=== PATIENT | female | born 1990 | race Caucasian/White ===

== ENCOUNTER 2023-06-06 20:48 | Outpatient (REF) | payer OTHER, SELFPAY ==
[2023-06-13 13:08] LABS: Age Gdln ACOG Testing Note (.); HPV Aptima Negative (Negative); IGP, Aptima HPV, rfx 16/18,45 Note (.)
== END 2023-06-06 20:49 | disposition home or self-care (01) ==
LOC: LAB 20:48
PROVIDERS: PCP Family Medicine; Visit Provider Obstetrics & Gynecology
DX: Z01.419 Encounter for gynecological examination (general) (routine) without abnormal findings (principal)
CPT/HCPCS: 87624; G0145

== ENCOUNTER 2023-10-01 10:20 | Emergency (ER) | payer OTHER, SELFPAY ==
[2023-10-01 10:26] VITALS: BP 135/86; PULSE 116; RESP 18; TEMP 36.9; O2SAT 100; BMI 31.6
--- NOTE | 2023-10-01 10:44 | ECG_ITS ---
[facility] Test Date: 2023-10-01 Pat Name: RAND JOYCE Department: Room: - Gender: Female [employer]: : 1990 Requested By: [id number] Order Number: [id number] Reading MD: KENDALL DOSS Measurements Intervals [place] Rate: 111 P: 59 GA: 180 QRS: 53 QRSD: 82 T: 50 QT: 314 QTc: 380 Interpretive Statements 1120 Sinus tachycardia 9140 abnormal rhythm ECG No previous ECG available for comparison Electronically Signed On 10-01-2023 17:54:57 EST by KENDALL DOSS
--- NOTE | 2023-10-01 10:45 | ED_ITS ---
HPI - General Adult General Chief complaint: Upper Respiratory Infection Stated complaint: CONGESTION/NAUSEA Time Seen by Provider: 10/01/23 10:36 Source: patient Mode of arrival: walk-in History of Present Illness HPI narrative: 33-year-old female presents for dizziness. She states she started feeling ill last night and has pressure in her head. No cough or shortness of breath. No vomiting or abdominal pain or fever. She states she got dizzy walking across the room. She was noted to be tachycardic with a rate of about 115 upon arrival. Related Data Allergies Allergy/AdvReac Type Severity Reaction Status Date / Time amoxicillin AdvReac Intermediate Verified 10/01/23 10:26 Review of Systems ROS Narrative A ten point review of systems is negative except as noted above. PFSH PFSH Social History Smoking status: Never smoker Exam Narrative Exam Narrative: Nurses note and vital signs reviewed and patient is not hypoxic. General: The patient appears well and in no apparent distress. Patient is resting comfortably on cart. Skin: Warm, dry, no pallor noted. There is no rash noted. Head: Normocephalic, atraumatic Eye: Normal conjunctiva, no drainage Ears, Nose, Mouth, and Throat: oral mucosa is moist. Nares patent. no pharyn geal erythema or exudate. She is handling her oral secretions well. Cardiovascular: Regular Rate and Rhythm, tachycardic Respiratory: Patient is in no distress, no accessory muscle use, lungs are clear to auscultation, no wheezing, rales or rhonchi Back: non-tender GI: soft and nontender Musculoskeletal: The patient has no evidence of calf tenderness, no pitting edema, symmetrical pulses noted bilaterally Neurological: A&O, normal speech Psychiatric: Cooperative Constitutional Vital Signs, click to edit/add: Last Vital Signs Temp 98.5 F 10/01/23 10:26 Pulse 116 H 10/01/23 10:26 Resp 18 10/01/23 10:26 BP 135/86 10/01/23 10:26 Pulse Ox 100 10/01/23 10:26 Course Vital Signs Vital signs: Vital Signs Temperature 98.5 F 10/01/23 10:26 Pulse Rate 116 H 10/01/23 10:26 Respiratory Rate 18 10/01/23 10:26 Blood Pressure 135/86 10/01/23 10:26 Pulse Oximetry 100 10/01/23 10:26 Temperature 98.5 F 10/01/23 10:26 Pulse Rate 116 H 10/01/23 10:26 Respiratory Rate 18 10/01/23 10:26 Blood Pressure 135/86 10/01/23 10:26 Pulse Oximetry 100 10/01/23 10:26 Medical Decision Making MDM Narrative Medical decision making narrative: her workup is essentially negative. WBC slightly elevated. She was given IV fluids and feels improved and is able to be discharged home. My clinical impression is that she has a viral illness. Treatment diagnosis and follow-up were discussed with the patient. Differential Diagnosis Differential Diagnosis: viral illness, dehydration, electrolyte imbalance Lab Data Lab results reviewed: Yes I reviewed the patient's lab results Labs: Lab Results 10/01/23 10/01/23 Range/Units 10:30 11:20 WBC 16.5 H (4.0-11.0) 10^3/uL RBC 4.55 (4.20-5.40) 10^6/uL Hgb 13.6 (12.0-16.0) g/dL Hct 41.6 (36.0-48.0) % MCV 91.4 (81.0-99.0) fL MCH 29.9 (26.7-34.0) pg MCHC 32.7 (29.9-35.2) g/dL RDW 12.7 (11.0-15.0) % Plt Count 314 (150-450) 10^3/uL MPV 9.2 L (9.5-13.5) fL Neut % (Auto) 87.5 H (43.0-75.0) % Lymph % (Auto) 6.3 L (20.5-60.0) % [place] % (Auto) 5.8 (1.7-12.0) % Eos % (Auto) 0.0 L (0.9-7.0) % Baso % (Auto) 0.2 (0.2-2.0) % Neut # (Auto) 14.4 H (1.4-6.5) 10^3/uL Lymph # (Auto) 1.0 L (1.2-3.8) 10^3/uL [place] # (Auto) 1.0 H (0.3-0.8) 10^3/uL Eos # (Auto) 0.0 (0.0-0.7) 10^3/uL Baso # (Auto) 0.0 (0.0-0.1) 10^3/uL Abs Immat Gran (auto) 0.04 H (0.00-0.03) 10^3/uL Imm/Tot Granulo (auto) 0.2 (0.0-0.5) % Sodium 139 (136-145) mmol/L Potassium 4.0 (3.5-5.1) mmol/L Chloride 104 (98-107) mmol/L Carbon Dioxide 26.1 (21.0-32.0) mmol/L Anion Gap 12.9 BUN 8.0 (7.0-18.0) mg/dL Creatinine 0.83 (0.55-1.02) mg/dL Est GFR ( Amer) >60 (>=60) Est GFR (Non-Af Amer) >60 (>=60) BUN/Creatinine Ratio 9.6 Glucose 107 H (74-106) mg/dL Calcium 8.3 L (8.5-10.1) mg/dL SARS-CoV-2 (PCR) Negative (NEGATIVE) Streptococcus Screen Negative ECG Data Attestation: I personally reviewed and interpreted this ECG as follows: (EKG on my interpretation shows sinus rhythm with a rate of 111 and no acute changes.) Discharge Plan Discharge Chief Complaint: Upper Respiratory Infection Clinical Impression: Viral infection Patient Disposition: Home, Self-Care Time of Disposition Decision: 12:05 Condition: Good Mode of Transportation: Private Vehicle Instructions: Viral Syndrome (ED) Stand Alone Forms: Portal Instructions Referrals: KIARA MOLINA [Primary Care Provider] - 1 week
[2023-10-01 10:56] LABS: Internal Control Within Normal Limits; SARS-CoV-2 Ag NEGATIVE (NEGATIVE); Strep A Antigen Screen Negative
[2023-10-01] MEDS: 0.9 % SODIUM CHLORIDE 1,000 ML 1000 ML IV (10:59)
[2023-10-01 11:28] LABS: Basophils Percent Auto 0.2 % (0.2-2.0); Hematocrit 41.6 % (36.0-48.0); Hemoglobin 13.6 g/dL (12.0-16.0); Immature Granulocytes Abs Auto 0.04 10^3/uL (0.00-0.03); Immature Granulocytes Pct Auto 0.2 % (0.0-0.5); Lymphocytes Percent Auto 6.3 % (20.5-60.0); Mean Corpuscular HGB Conc 32.7 g/dL (29.9-35.2); Mean Corpuscular Hemoglobin 29.9 pg (26.7-34.0); Mean Corpuscular Volume 91.4 fL (81.0-99.0); Mean Platelet Volume 9.2 fL (9.5-13.5); Monocytes Percent Auto 5.8 % (1.7-12.0); Neutrophils Absolute Auto 14.4 10^3/uL (1.4-6.5); Neutrophils Percent Auto 87.5 % (43.0-75.0); Platelet Count 314 10^3/uL (150-450); Red Blood Count 4.55 10^6/uL (4.20-5.40); Red Cell Distribution Width 12.7 % (11.0-15.0); White Blood Count 16.5 10^3/uL (4.0-11.0)
[2023-10-01 11:58] LABS: Anion Gap 12.9; BUN Creatinine Ratio 9.6; Calcium 8.3 mg/dL (8.5-10.1); Carbon Dioxide 26.1 mmol/L (21.0-32.0); Chloride 104 mmol/L (98-107); Estimated GFR (African America >60 (>=60); Estimated GFR (Non-African Ame >60 (>=60); Glucose 107 mg/dL (74-106); Sodium 139 mmol/L (136-145)
[2023-10-01 14:47] LABS: SARS-CoV-2 NAA NOT DETECTED (NOT DETECTE)
== END 2023-10-01 12:12 | disposition home or self-care (01) ==
PROVIDERS: Emergency Provider Emergency Medicine; PCP Family Medicine
DX: B34.9 Viral infection, unspecified (principal); Z20.822 Contact with and (suspected) exposure to COVID-19
CPT/HCPCS: 36415; 80048; 85025; 87070; 87635; 87811; 87880; 93005; 99284

== ENCOUNTER 2024-09-03 08:29 | Outpatient (OUT) | payer OTHER, SELFPAY ==
--- NOTE | 2024-09-03 08:41 | US_ITS ---
[address] [address] Patient Name: RAND JOYCE MRN: [id number] date: 1990 Sex: F Assigned Patient Location: US Current Patient Location: Accession/Order Number: [id number] Exam Date: 09/03/2024 08:45 Report Date: 09/05/2024 04:38 At the request of: ANGÉLICA LEHMAN Procedure: US pelvis w/ transvaginal EXAMINATION: US pelvis w/ transvaginal HISTORY: Polycystic Ovarian Syndrome E28.2 COMPARISON: No relevant comparison available. TECHNIQUE: Transabdominal and/or transvaginal sonographic examination was performed as indicated by examination type. FINDINGS: UTERUS: Normal size and appearance of the uterine body. Several nabothian cysts within casas of cervix, largest is 1.4 cm.. Uterus size: 8.4 x 5.1 x 4.9 cm ENDOMETRIUM: Normal homogeneous appearance. Endometrial thickness: 6 mm RIGHT OVARY: Normal size and appearance. Duplex Doppler demonstrates normal waveform and flow; resistive index 0.7. Ovary size: 3.3 x 1.9 x 1.5 cm LEFT OVARY: Normal size and appearance. Duplex Doppler demonstrates normal waveform and flow; resistive index 0.6. Ovary size: 2.7 x 1.8 x 1.4 cm CUL-DE-SAC: Unremarkable. No significant free fluid. BLADDER: Unremarkable. OTHER: None. US/US pelvis w/ transvaginal IMPRESSION: 1. No ultrasound evidence of polycystic ovarian syndrome. Electronically authenticated by: LEONARD JENKINS Date: 09/05/2024 04:38
--- OUTSIDE RECORDS SUMMARY | 2024-09-03 08:46 | XMS_ITS | CCD ---
Author Organization [facility] Care Team Providers Care Key Ringer Name Role Phone ASHOK, DR LINDSAY Consulting Unavailable MISC, DR CHAUDHARI Primary Care Unavailable ASHOK, DR LINDSAY Admitting Unavailable ASHOK, DR LINDSAY Attending Unavailable ASHOK, DR LINDSAY Consulting Unavailable ASHOK, DR LINDSAY Admitting Unavailable MISC, DR CHAUDHARI Primary Care Unavailable ASHOK, DR LINDSAY Attending Unavailable TRACY, DR PAM Rosenthal Primary Care Unavailable BROOKLYNN, GUDELIA Attending Unavailable BROOKLYNN, GUDELIA Consulting Unavailable BROOKLYNN, GUDELIA Admitting Unavailable MISC, DR CHAUDHARI Primary Care Unavailable JULIANA, SHELLI Attending Unavailable ANDREWS, SHELLI Admitting Unavailable OMAYRA, MAMTA Attending Unavailable OMAYRA, MAMTA Consulting Unavailable OMAYRA, MAMTA Admitting Unavailable MISC, DR CHAUDHARI Primary Care Unavailable ASHOK, DR LINDSAY Consulting Unavailable MISC, DR CHAUDHARI Primary Care Unavailable ASHOK, DR LINDSAY Admitting Unavailable ASHOK, DR LINDSAY Attending Unavailable ZIEBKELSEY, DR LEONARD Ibarra Consulting Unavailable ALLISON TOTH Referring Unavailable Pam Molina MD Primary Care Provider KAMALA WALSH Attending Unavailable ANGÉLICA PULIDO Attending Unavailable Allergies Allergy Classification Reported Allergen(s) Allergy Type Date of Onset Reaction(s) Facility (3 sources) Amoxicillin Drug Allergy 06-06-2023 Rash [facility] Work Phone: (3 sources) Ciprofloxacin Drug Allergy 06-06-2023 Headache [facility] (3 sources) Escitalopram Drug Allergy 06-30-2023 [facility] (3 sources) venlafaxine Drug Allergy 06-30-2023 [facility] Medications Completed/Discontinued Medications Medication Drug Class(es) Dates Sig (Normalized) Sig (Original) baclofen 10 mg oral tablet (3 sources) gamma-Aminobutyric Acid-ergic Agonist Start: 08-23-2023 End: 08-26-2024 take 1 tablet by mouth in the morning, then take 1 tablet by mouth in the evening, then take 1 tablet by mouth at bedtime baclofen (Lioresal) 10 MG tablet Indications: Muscle tightness Take 1 tablet (10 mg) by mouth in the morning and 1 tablet (10 mg) in the evening and 1 tablet (10 mg) before bedtime. Do all this for 7 days. 21 tablet 08/23/2023 08/26/2024 Discontinued ibuprofen 200 mg oral tablet (3 sources) Nonsteroidal Anti-inflammatory Drug End: 08-26-2024 ibuprofen 200 MG tablet Take by mouth. 08/26/2024 Discontinued MULTIPLE VITAMIN PO (3 sources) End: 08-26-2024 MULTIPLE VITAMIN PO Take by mouth. 08/26/2024 Discontinued MULTIPLE VITAMIN PO Take by mouth. Active Problems Active Problems Problem Classification Problem Date Documented Da te Episodic/Chronic Adjustment disorders (3 sources) Stress; Translations: [Reaction to severe stress, unspecified] Onset: 09-13-2017 06-30-2023 Chronic Administrative/social admission (2 sources) Encounter for pre-employment examination; Translations: [Encounter for pre-employment examination] Onset: 09-15-2023 Episodic Anxiety disorders (3 sources) Anxiety disorder; Translations: [Anxiety disorder, unspecified] Onset: 06-30-2023 06-30-2023 Chronic Menstrual disorders (4 sources) Irregular menstruation, unspecified; Translations: [IRREGULAR MENSTRUATION UNSPECIFIED] Onset: 06-30-2022 Chronic Mood disorders (6 sources) Depressive disorder; Translations: [Depressive disorder] Onset: 11-15-2017 06-30-2023 Chronic Other endocrine disorders (2 sources) Polycystic ovary syndrome; Translations: [Polycystic ovarian syndrome] 08-26-2024 Chronic Other nutritional; endocrine; and metabolic disorders (3 sources) Metabolic syndrome X; Translations: [Insulin resistance syndrome] Onset: 06-30-2023 06-30-2023 Chronic Other nutritional; endocrine; and metabolic disorders (3 sources) Lipoprotein deficiency disorder; Translations: [Lipoprotein deficiency] Onset: 05-27-2019 06-30-2023 Chronic Other nutritional; endocrine; and metabolic disorders (3 sources) Body mass index 30+ - obesity; Translations: [Obesity, unspecified] Onset: 12-07-2018 06-30-2023 Chronic Other upper respiratory infections (3 sources) Chronic sinusitis; Translations: [Chronic sinusitis, unspecified] Onset: 09-08-2020 06-30-2023 Chronic Past or Other Problems Problem Classification Problem Date Documented Date Episodic/Chronic Biliary tract disease (3 sources) Gallstone; Translations: [Calculus of gallbladder without cholecystitis without obstruction] Onset: 09-28-2020 06-30-2023 Episodic Immunizations and screening for infectious disease (1 source) Encounter for screening for human papillomavirus (HPV); Translations: [ENC SCREENING HUMAN PAPILLOMAVIRUS] Onset: 06-01-2022 Episodic Other nutritional; endocrine; and metabolic disorders (3 sources) Abnormal weight gain; Translations: [Abnormal weight gain] Onset: 06-30-2023 06-30-2023 Episodic Other screening for suspected conditions (not mental disorders or infectious disease) (4 sources) Encounter for screening for malignant neoplasm of cervix; Translations: [ENC SCREENING MALIG NEOPLASM CERV] Onset: 05-31-2022 Episodic Other skin disorders (3 sources) Keratosis pilaris; Translations: [Other specified epidermal thickening] Onset: 04-19-2019 06-30-2023 Episodic Residual codes; unclassified (3 sources) Disturbance in sleep behavior; Translations: [Sleep disorder, unspecified] Onset: 06-30-2023 06-30-2023 Episodic Results Test Name Value Interpretation Reference Range Emelina Rojas Ginaevonne 09-21-2023 Send Out Report SEE NOTE Normal [facility] Comment on above: Result Comment: (NOT E) Test name Result Flag Units RefIntvl Varicella-Zoster Virus Ab, IgG 1789.0 IV INTERPRETIVE INFORMATION: VZV Ab, IgG 134.9 IV or less ....... Negative - No significant level of detectable IgG varicella-zoster antibody. 135.0 - 164.9 IV ....... Equivocal - Repeat testing in 10-14 days may be helpful. 165.0 IV or greater .... Positive - IgG antibody to varicella-zoster detected, which may indicate a current or past varicella-zoster infection. The best evidence for current infection is a significant change on two appropriately timed specimens, where both tests are done in the same laboratory at the same time. Performed By: [facility] [address] [place] [id number] Cosmetic Manager: Andrew Garza MD, PhD CLIA Number: [id number] Performed By: #### M ISCF #### [address] [id number] Criminal Records Technician: Gunner Andrews MD [address] [id number] Criminal Records Technician: Shaun Chavez MD [facility] Test Name VZ IGG [facility] [id number] Normal [facility] Comment on above: Performed By: #### M ISCF #### [address] [id number] Criminal Records Technician: Gunner Andrews MD [address] [id number] Criminal Records Technician: Shaun Chavez MD GLUCOSE BLOODon 10-06-2022 Glucose [Mass/Vol] 81 mg/dL Normal 74-106 [facility] [place] [facility] Comment on above: Performed By: #### L IPID, GLUC #### [facility] [address] [place] [id number] Dr. Shantell Nuñez LIPID PROFILEon 10-06-2022 CHOL-HDL RATIO NORM SEE BELOW Normal [facility] Comment on above: Result Comment: 3.3 - 4.4 LOW RISK 4.4 - 7.1 AVERAGE RISK 7.1 - 11.0 MODERATE RISK >11.0 HIGH RISK Performed By: #### L IPID, GLUC #### [facility] [address] [place] [id number] Dr. Shantell Nuñez Cholesterol [Mass/Vol] 163 mg/dL Normal <=200 [facility] Comment on above: Performed By: #### L IPID, GLUC #### [facility] [address] [place] [id number] Dr. Shantell Nuñez Cholesterol in HDL [Mass/Vol] 43 mg/dL Normal 40-60 [facility] Comment on above: Performed By: #### L IPID, GLUC #### [facility] [address] [address] [address] Shantell Nuñez Cholesterol in LDL [Mass/Vol] 107.4 mg/dL Normal [facility] Comment on above: Performed By: #### L IPID, GLUC #### [facility] [address] [address] [address] Shantell Nuñez Cholesterol.total/ Cholesterol in HDL [Mass ratio] 3.8 {ratio} Normal [facility] Comment on above: Performed By: #### L IPID, GLUC #### [facility] [address] [address] [address] Shantell Nuñez HDL NORMAL > or = 60 mg/dl - LO W CARDIOVASCULAR RISK <40 mg/dl - HIGH CARDIOVASCULAR RISK Normal [facility] Comment on above: Performed By: #### L IPID, GLUC #### [facility] [address] [place] [id number] Dr. Shantell Nuñez LDL CALC NORMAL SEE BELOW Normal [facility] Comment on above: Result Comment: <100 mg/dl OPTIMAL 100 - 129 mg/dl NEAR OR ABOVE OPTIMAL 130 - 159 mg/dl BORDERLINE HIGH 160 - 189 mg/dl HIGH >190 mg/dl VERY HIGH Performed By: #### L IPID, GLUC #### [facility] [address] [address] [address] Shantell Nuñez Triglyceride [Mass/Vol] 63 mg/dL Normal <=150 [facility] Comment on above: Performed By: #### L IPID, GLUC #### [facility] [address] [address] [address] Shantell Nuñez VLDL CALC 12.6 mg/dL Normal [facility] Comment on above: Performed By: #### L IPID, GLUC #### [facility] [address] [address] [address] Shantell Nuñez CBC AUTO DIFFon 06-30-2022 BASO # 0.0 103/ul Normal 0.0-0.1 [facility] Comment on above: Performed By: #### C BC #### [facility] [address] [address] [address] Shantell Nuñez Basophils/100 WBC (Bld) 0.3 % Normal 0.2-2.0 [facility] Comment on above: Performed By: #### C BC #### [facility] [address] [address] [address] Shantell Nuñez EO # 0.1 103/ul Normal 0.0-0.7 [facility] Comment on above: Performed By: #### C BC #### [facility] [address] [place] [id number] Dr. Shantell Nuñez Eosinophils/100 WBC (Bld) 0.7 % Critically low 0.9-7.0 [facility] Comment on above: Performed By: #### C BC #### [facility] [address] [place] [id number] Dr. Shantell Nuñez Erythrocyte distribution width (RBC) [Ratio] 12.8 % Normal 11.0-15.0 [facility] Comment on above: Performed By: #### C BC #### [facility] [address] [place] [id number] Dr. Shantell Nuñez Hematocrit (Bld) [Volume fraction] 42.4 % Normal 36.0-48.0 [facility] Comment on above: Performed By: #### C BC #### [facility] [address] [place] [id number] Dr. Sahntell Nuñez Hemoglobin (Bld) [Mass/Vol] 13.9 g/dL Normal 12.0-16.0 [facility] Comment on above: Performed By: #### C BC #### [facility] [address] [place] [id number] Dr. Shantell Nuñez IG # 0.03 10e3/ul Normal 0.00-0.03 [facility] Comment on above: Performed By: #### C BC #### [facility] [address] [place] [id number] Dr. Shantell Nuñez IG % 0.3 % Normal 0.0-0.5 [facility] Comment on above: Performed By: #### C BC #### [facility] [address] [place] [id number] Dr. Shantell Nuñez LYMPH # 2.3 103/ul Normal 1.2-3.8 [facility] Comment on above: Performed By: #### C BC #### [facility] [address] [place] [id number] Dr. Shantell Nuñez Lymphocytes/100 WBC (Bld) 23.3 % Normal 20.5-60.0 [facility] Comment on above: Performed By: #### C BC #### [facility] [address] [place] [id number] Dr. Shantell Nuñez MANUAL DIFF REQ NO Normal [facility] Comment on above: Performed By: #### C BC #### [facility] [address] [place] [id number] Dr. Shantell Nuñez MCH (RBC) [Entitic mass] 30.0 pg Normal 26.7-34.0 [facility] Comment on above: Performed By: #### C BC #### [facility] [address] [place] [id number] Dr. Shantell Nuñez MCHC (RBC) [Mass/Vol] 32.8 g/dL Normal 29.9-35.2 [facility] Comment on above: Performed By: #### C BC #### [facility] [address] [place] [id number] Dr. Shantell Nuñez MCV (RBC) [Entitic vol] 91.4 fL Normal 81.0-99.0 [facility] Comment on above: Performed By: #### C BC #### [facility] [address] [place] [id number] Dr. Shantell Nuñez MONO # 0.8 103/ul Normal 0.3-0.8 [facility] Comment on above: Performed By: #### C BC #### [facility] [address] [place] [id number] Dr. Shantell Nuñez Monocytes/100 WBC (Bld) 7.5 % Normal 1.7-12.0 [facility] Comment on above: Performed By: #### C BC #### [facility] [address] [place] [id number] Dr. Shantell Nuñez NEUT # 6.8 103/ul Critically high 1.4-6.5 [facility] Comment on above: Performed By: #### C BC #### [facility] [address] [place] [id number] Dr. Shantell Nuñez Neutrophils/100 WBC (Bld) 67.9 % Normal 43.0-75.0 [facility] Comment on above: Performed By: #### C BC #### [facility] [address] [place] [id number] Dr. Shantell Nuñez Platelet mean volume (Bld) [Entitic vol] 9.3 fL Critically low 9.5-13.5 [facility] Comment on above: Performed By: #### C BC #### [facility] [address] [place] [id number] Dr. Shantell Nuñez PLT 338 103/ul Normal 150-450 [facility] Comment on above: Performed By: #### C BC #### [facility] [address] [place] [id number] Dr. Shantell Nuñez RBC 4.64 106/ul Normal 4.20-5.40 [facility] Comment on above: Performed By: #### C BC #### [facility] [address] [place] [id number] Dr. Shantell Nuñez WBC 10.0 103/ul Normal 4.0-11.0 [facility] Comment on above: Performed By: #### C BC #### [facility] [address] [place] [id number] Dr. Shantell Nuñez PREG QUANT HCGon 06-30-2022 HCG QUANT 1 mIU/mL Normal [facility] Comment on above: Performed By: #### T SH, PREGQNT #### [facility] [address] [place] [id number] Dr. Shantell Nuñez HCG RANGE SEE BELOW Normal [facility] Comment on above: Result Comment: 5-50 0.2-1 WEEK 50-500 1-2 WEEKS 100-5,000 2-3 WEEKS 500-10,000 3-4 WEEKS 1,000-50,000 4-5 WEEKS 10,000-100,000 5-6 WEEKS 15,000-200,000 6-8 WEEKS 10,000-100,000 2-3 MONTHS Performed By: #### T SH, PREGQNT #### [facility] [address] [place] [id number] Dr. Shantell Nuñez PROTIMEon 06-30-2022 INR Coag (PPP) [Relative time] 0.98 {INR} Normal [facility] Comment on above: Performed By: #### P TT, PT #### [facility] [address] [place] [id number] Dr. Shantell Nuñez INR GUIDELINES SEE BELOW Normal [facility] Comment on above: Result Comment: CÉSAR RED INR: 2.0 - 3.0 CONDITIONS NOT LISTED BELOW 2.5 - 3.5 FOR PROSTHETIC HEART VALVE REPLACEMENT 2.5 - 3.5 RECURRENT THROMBOSIS Performed By: #### P TT, PT #### [facility] [address] [place] [id number] Dr. Shantell Nuñez PT Coag (PPP) [Time] 10.6 s Normal 9.0-11.6 [facility] Comment on above: Performed By: #### P TT, PT #### [facility] [address] [place] [id number] Dr. Shantell Nuñez PTTon 06-30-2022 aPTT Coag (Bld) [Time] 26.8 s Normal 22.3-36.2 [facility] Comment on above: Performed By: #### P TT, PT #### [facility] [address] [place] [id number] Dr. Shantell Nuñez TSHon 06-30-2022 TSH 1.354 uIU/mL Normal 0.358-3.740 [facility] Comment on above: Performed By: #### T SH, PREGQNT #### [facility] [address] [place] [id number] Dr. Shantell Nuñez US PELVIS AND TRANSVAGon US PELVIS AND TRANSVAG EXAMINATION: US PELVIS AND TRANSVAG HISTORY: Irregular periods COMPARISON: No relevant comparison available. TECHNIQUE: Transabdominal and transvaginal sonographic examination. FINDINGS: UTERUS: Normal size and appearance. Incidental small nabothian cysts within cervix. Uterus size: 8.8 x 4.9 x 6.2 cm ENDOMETRIUM: Normal homogeneous appearance. Endometrial thickness: 14 mm RIGHT OVARY: Normal size and appearance. Duplex Doppler demonstrates normal waveform and flow; resistive index 0.6. Ovary size: 2.9 x 1.6 x 2.5 cm LEFT OVARY: Normal size and appearance. Duplex Doppler demonstrates normal waveform and flow; resistive index 0.6. Ovary size: 2.5 x 1.3 x 1.6 cm CUL-DE-SAC: Unremarkable. No significant free fluid. BLADDER: Unremarkable. OTHER: None. IMPRESSION: 1. Unremarkable pelvic ultrasound. Electronically authenticated by: LEONARD JENKINS Date: 2022-06-30 11:56 Normal [facility] PAP ACOG PANEL 2: 30 to 65on 06-06-2022 . . Normal [facility] Comment on above: Result Comment: Perf ormed at: WB Performed By: #### 4 [id number] #### [facility] [address] [address] [address] Shantell Nuñez Age Gdln ACOG Testing 30-65 Normal [facility] Comment on above: Performed By: #### 4 [id number] #### [facility] [address] [address] [address] Shantell Nuñez DIAGNOSIS: Comment Normal [facility] Comment on above: Result Comment: NEGA TIVE FOR INTRAEPITHELIAL LESION OR MALIGNANCY. Performed at: WB Performed By: #### 4 [id number] #### [facility] [address] [address] [address] Shantell Nuñez HPV Aptima Negative Normal Negative [facility] Comment on above: Result Comment: This nucleic acid amplification test detects fourteen high-risk HPV types (16,18,31,33,35,39,45,51,52,56,58,59,66,68) without differentiation. Performed at: =G Performed By: #### 4 [id number] #### [facility] [address] [address] [address] Shantell Nuñez Methodology: Comment Normal [facility] Comment on above: Result Comment: This liquid based ThinPrep(R) pap test was screened with the use of an image guided system. Performed at: WB Performed By: #### 4 [id number] #### [facility] [address] [place] [id number] Dr. Shantell Nuñez Note: Comment Normal [facility] Comment on above: Result Comment: The Pap smear is a screening test designed to aid in the detection of premalignant and malignant conditions of the uterine cervix. It is not a diagnostic procedure and should not be used as the sole means of detecting cervical cancer. Both false-positive and false-negative reports do occur. . Performed at: WB Performed By: #### 4 [id number] #### [facility] [address] [place] [id number] Dr. Shantell Nuñez Performed by: Comment Normal [facility] Comment on above: Result Comment: Anamaria Brown, [employer] Performed at: WB Performed By: #### 4 [id number] #### [facility] [address] [place] [id number] Dr. Shantell Nuñez Specimen adequacy: Comment Normal [facility] Comment on above: Result Comment: Sati sfactory for evaluation. Endocervical and/or squamous metaplastic cells (endocervical component) are present. Performed at: WB Performed By: #### 4 [id number] #### [facility] [address] [place] [id number] Dr. Shantell Nuñez PREG QUANT HCGon 10-21-2021 HCG QUANT 1 mIU/mL [facility] Comment on above: Performed By: #### P REGQNT #### [facility] [address] [place] [id number] Dr. Shantell Nuñez HCG RANGE SEE BELOW [facility] Comment on above: Result Comment: 5-50 0-1 WEEK 40-300 1-2 WEEKS 100-1,000 2-3 WEEKS 500-6,000 3-4 WEEKS 5,000-200,000 1-2 MONTHS 10,000-100,000 2-3 MONTHS 3,000-50,000 2ND TRIMESTER 1,000-50,000 3RD TRIMESTER Performed By: #### P REGQNT #### [facility] [address] [place], [place] [address] Dr. Shantell Nuñez Infection Prevention Noteon 09-01-2020 Infection Prevention Note Case entered into the [place] Disease Reporting System (ODRS). ODRS #[id number]. [facility] Case was entered on 08/28/2020 [facility] Consent Formson 08-31-2020 Consent Forms [id number]#1.0 0OTGTIFF [facility] .QC Respiratory Panel 2.1 (B ioFire)on 08-27-2020 Internal Control-Resp Panel 2.1(BioFire) Pass [facility] Comment on above: Order Comment: Order ed by Discern.[[id number]] Performed By: #### 6 [id number] ####[facility] (DEFAULT)[address] [place] [address] Progress Note - Nurseon Progress Note - Nurse Employee called and informed of positive covid results. [Electronically Signed on: 08/27/2020 09:43 EST] Claribel Morales RN [Verified on: 08/27/2020 09:43 EST] Claribel Morales RN [facility] Progress Note - Nurse Nasal swab performed without complication. Patient tolerated well. Education given. Patient verbalized understanding. [Electronically Signed on: 08/27/2020 08:44 EST] Sania Khan RN [Verified on: 08/27/2020 08:44 EST] Sania Khan RN [facility] Lab - AP Resultson 0 Lab - AP Results [id number]#1.0 0OTGTIFF [facility] T-Spoton 08-14-2020 T-Spot See Report [facility] Comment on above: Performed By: #### 3 [id number] ####[facility] (DEFAULT)[address] [place] [address] Lab - AP Resultson 0 Lab - AP Results [id number] 0OTGTIFF [facility] Lab - Toxicology Resultson 1 Lab - Toxicology Results [id number]#1.0 0OTGTIFF [facility] T-Spoton 08-06-2020 T-Spot See Report [facility] Comment on above: Performed By: #### 3 [id number] #### [facility] (DEFAULT) [address] [place] [address] Hep B Surface Ab Qual LCon 1 Hep B Surface Ab LC Reactive [facility] Comment on above: Result Comment: Non Reactive: Inconsistent with immunity, less than 10 mIU/mL Reactive: Consistent with immunity, greater than 9.9 mIU/mL Performed At: [facility] [id number] Damir Bowman PhD Ph:[phone] Performed By: #### 3 [id number], [id number] #### [facility] (DEFAULT) [address] [place] [address] Measles/Mumps/Rubella Immuni ty LCon 08-04-2020 Mumps Abs, IgG LC <9.0 Low Immune >10.9 [facility] Comment on above: Result Comment: Nega tive <9.0 Equivocal 9.0 - 10.9 Positive >10.9 A positive result generally indicates past exposure to Mumps virus or previous vaccination. Performed At: [facility] [id number] Damir Bowman PhD Ph:[phone] Performed By: #### 3 [id number] #### [facility] (DEFAULT) [address] [place] [id number] Rubella Antibodies, IgG LC 2.63 index Immune >0.99 [facility] Comment on above: Result Comment: Non- immune <0.90 Equivocal 0.90 - 0.99 Immune >0.99 Performed By: #### 3 [id number] #### [facility] (DEFAULT) [address] [place] [address]29 Rubeola Ab, IgG, EIA LC 22.2 AU/mL Immune >16.4 [facility] Comment on above: Result Comment: Nega tive <13.5 Equivocal 13.5 - 16.4 Positive >16.4 Presence of antibodies to Rubeola is presumptive evidence of immunity except when acute infection is suspected. Performed By: #### 3 [id number] #### [facility] (DEFAULT) [address] [place] [address]83 Nicotine Metabolite, Urine L Con 08-04-2020 Cotinine LC Negative [id number] [facility] Comment on above: Result Comment: Perf ormed At: [facility] [address] [facility] [place], [place] [id number] Catailna Dey PhD Ph:[phone] Performed By: #### 1 [id number] #### [facility] (DEFAULT) [address] [place] [address] Vital Signs Date Time Vital Sign Value Performing Clinician Javier lity 08-26-2024 14:33-0500 Body height 177.8 cm [employer] Work Phone: [facility] 08-26-2024 14:33-0500 Body mass index (BMI) [Ratio] 32.57 kg/m2 Angélica Ashok DO Work Phone: [facility] 08-26-2024 14:33-0500 Body weight 102.97 kg Angélica Ashok DO Work Phone: [facility] 08-26-2024 14:33-0500 Diastolic blood pressure 82 mm[Hg] Angélica Ashok DO Work Phone: [facility] 08-26-2024 14:33-0500 Systolic blood pressure 126 mm[Hg] Angélica Ashok DO Work Phone: [facility] Encounters Encounter Date Encounter Type Care Provider Facility Start: 08-26-2024 End: 08-26-2024 Office outpatient visit 15 minutes Angélica Ashok DO Work Phone: [facility] Comment on above: PCOS (polycystic ova feroz syndrome) Start: 08-26-2024 End: 08-26-2024 Bamboo flowsheet Angélica Ashok DO Work Phone: [facility] Start: 08-26-2024 End: 08-26-2024 Bamboo flowsheet Angélica Ashok DO Work Phone: [facility] Start: 08-26-2024 End: 08-26-2024 ambulatory ANGÉLICA PULIDO Not Available Start: 12-19-2023 End: 12-19-2023 ambulatory KAMALA WALSH Not Available Start: 09-15-2023 End: 09-16-2023 ambulatory ALLISON [facility] Start: 10-10-2022 Encounter for genera l adult medical examination without abnormal findings GUDELIA OVERTON [facility] Start: 10-06-2022 End: 10-07-[address] PAM MOLINA Facility:[facility] Start: 10-06-2022 End: 10-07-2022 Encounter for general adult medical examination without abnormal findings DR PAM MOLINA Facility:[facility] Start: 06-30-2022 End: 07-01-[address] ANGÉLICA PULIDO Facility:[facility] Start: 06-30-2022 End: 07-01-[address] ANGÉLICA PULIDO Facility:[facility] Start: 05-31-2022 End: 05-31-[address] ANGÉLICA PULIDO Facility:[facility] Start: 11-09-[address] DOCTOR NOGUERA Facility :[facility] Start: 10-21-2021 End: 10-22-2021 ambulatory MAMTA CUTLER Facility:[facility] Procedures Date Procedure Procedure Detail Performing Clinician Start: 06-19-2023 Microscopic observat ion [Identifier] in Cervix by Cyto stain Angélica Pulido DO Work Phone: Plan of Treatment Date Care Activity Detail Author Start: 06-19-2028 Screening for malign ant neoplasm of cervix [facility] Start: 01-28-2025 End: 01-28-2025 Patient encounter procedure 01/28/2025 2:00 PM EDT Office Visit [facility] [address] [place] [id number] Angélica Pulido, DO [address], [place] [id number] [facility] Start: 09-09-2024 End: 09-09-2024 Patient encounter procedure 09/09/2024 8:10 AM EST Office Visit [facility] [address] [place] [phone] Angélica Pulido, DO [address] [place] [address] [facility] Start: 08-26-2024 End: 08-26-2024 Patient encounter procedure 08/26/2024 2:10 PM EST Office Visit [facility] [address] [place] [phone] Angélica Pulido, DO [address], [place] [id number] Arrived [facility] Comment on above: Arrived Start: 08-26-2024 End: 08-26-2025 DHEA DHEA Lab Routine PCOS (polycystic ovarian syndrome) Expected: 08/26/2024 (Approximate), Expires: 08/26/2025 [facility] Comment on above: Expected: 08/26/2024 (Approximate), Expires: 08/26/2025 Start: 08-26-2024 End: 08-26-2025 US for US PELVIS-TRANSVAG IF INDICATED Imaging Routine PCOS (polycystic ovarian syndrome) Expected: 08/26/2024 (Approximate), Expires: 08/26/2025 [facility] Comment on above: Expected: 08/26/2024 (Approximate), Expires: 08/26/2025 Start: 06-23-2024 Influenza vaccination Influenza Vacc ine (#1) [facility] CBC W Auto Different ial panel - Blood CBC and differential Lab Routine PCOS (polycystic ovarian syndrome) Ordered: 08/26/2024 [facility] Comment on above: Ordered: 08/26/2024 DHEA-sulfate DHEA-sulfate Lab Routine PCOS (polycystic ovarian syndrome) Ordered: 08/26/2024 [facility] Comment on above: Ordered: 08/26/2024 Follicle stimulating hormone Follicle stimulating hormone Lab Routine PCOS (polycystic ovarian syndrome) Ordered: 08/26/2024 [facility] Comment on above: Ordered: 08/26/2024 hCG, quantitative, hCG, quantitative, Lab Routine PCOS (polycystic ovarian syndrome) Ordered: 08/26/2024 [facility] Work Phone: Comment on above: Ordered: 08/26/2024 Hemoglobin A1c/Hemoglobin.total in Blood Hemoglobin A1c Lab Routine PCOS (polycystic ovarian syndrome) Ordered: 08/26/2024 [facility] Comment on above: Ordered: 08/26/2024 Luteinizing hormone Luteinizing hormone Lab Routine PCOS (polycystic ovarian syndrome) Ordered: 08/26/2024 [facility] Comment on above: Ordered: 08/26/2024 Thyrotropin [Units/volume] in Serum or Plasma TSH Lab Routine PCOS (polycystic ovarian syndrome) Ordered: 08/26/2024 [facility] Comment on above: Ordered: 08/26/2024 Thyroxine (T4) free [Mass/volume] in Serum or Plasma T4, free Lab Routine PCOS (polycystic ovarian syndrome) Ordered: 08/26/2024 [facility] Comment on above: Ordered: 08/26/2024 Immunizations Immunization Date Immunization Notes Care Provider Sundeep lopez 05-19-2021 tetanus and diphther ia toxoids, adsorbed, preservative free, for adult use (5 Lf of tetanus toxoid and 2 Lf of diphtheria toxoid) Angélica Ashok DO Work Phone: [facility] 08-07-2020 influenza, injectabl e, quadrivalent, preservative free Angélica Ashok DO Work Phone: [facility] 08-07-2020 influenza virus vacc ine, unspecified formulation Angélica Ashok DO Work Phone: [facility] 08-31-2017 influenza, injectabl e, quadrivalent, preservative free Angélica Ashok DO Work Phone: [facility] 12-30-2013 hepatitis B vaccine, pediatric or pediatric/adolescent dosage Angélica Ashok DO Work Phone: [facility] 07-24-2013 hepatitis B vaccine, pediatric or pediatric/adolescent dosage Angélica Ashok DO Work Phone: [facility] 06-18-2013 hepatitis B vaccine, pediatric or pediatric/adolescent dosage Angélica Ashok DO Work Phone: [facility] 12-21-2010 tetanus toxoid, redu jemima diphtheria toxoid, and acellular pertussis vaccine, adsorbed Angélica Ashok DO Work Phone: [facility] 07-07-2004 measles, mumps and rubella virus vaccine Angélica Ashok DO Work Phone: [facility] 06-16-1997 diphtheria, tetanus toxoids and acellular pertussis vaccine, unspecified formulation Angélica Ashok DO Work Phone: [facility] 06-16-1997 poliovirus vaccine, unspecified formulation Angélica Ashok DO Work Phone: [facility] 05-26-1995 diphtheria, tetanus toxoids and acellular pertussis vaccine, unspecified formulation Angélica Ashok DO Work Phone: [facility] 05-26-1995 haemophilus influenz ae type b vaccine, conjugate unspecified formulation Angélica Ashok DO Work Phone: [facility] 05-26-1995 measles, mumps and rubella virus vaccine Angélica Ashok DO Work Phone: [facility] 05-26-1995 poliovirus vaccine, unspecified formulation Angélica Ashok DO Work Phone: [facility] 02-18-1993 diphtheria, tetanus toxoids and acellular pertussis vaccine, unspecified formulation Angélica Ashok DO Work Phone: [facility] 02-18-1993 haemophilus influenz ae type b vaccine, conjugate unspecified formulation Angélica Ashok DO Work Phone: [facility] 02-18-1993 poliovirus vaccine, unspecified formulation Angélica Ashok DO Work Phone: [facility] 1992 diphtheria, tetanus toxoids and acellular pertussis vaccine, unspecified formulation Angélica Ashok DO Work Phone: [facility] 1992 haemophilus influenz ae type b vaccine, conjugate unspecified formulation Angélica Ashok DO Work Phone: [facility] 1992 poliovirus vaccine, unspecified formulation Angélica Ashok DO Work Phone: [facility] 1992 diphtheria, tetanus toxoids and acellular pertussis vaccine, unspecified formulation Angélica Ashok DO Work Phone: [facility] 1992 haemophilus influenz ae type b vaccine, conjugate unspecified formulation Angélica Ashok DO Work Phone: [facility] 1992 poliovirus vaccine, unspecified formulation Angélica Ashok DO Work Phone: [facility] Payers Date Payer Category Payer Private Health Insurance [employer] [id number] 2023 Private Health Insurance [facility] [id number] 2014 Unknown [id number] 1992 Unknown [id number] 1992 Unknown [id number] 593 1992 Unknown [id number] 593 1992 Unknown [id number] 593 1992 Unknown [id number]. 593 1992 Unknown [id number] 593 1992 Unknown [id number] 173 1992 Unknown [id number]. 1259 1992 Unknown [id number] 1259 1959 Unknown [id number] 1959 Unknown [id number] Unknown [id number] Social History Date Type Detail Facility Start: 12-19-2023 Tobacco smoking status TNIS Never sm oked tobacco [facility] Start: 12-19-2023 Tobacco use and exposure Smoke less tobacco non-user [facility] Start: 12-19-2023 End: 08-26-2024 Alcoholic beverage intake Ex-drinker (finding) [facility] Start: 07-04-2023 End: 12-19-2023 History of Social function [facility] Start: 07-04-2023 End: 12-19-2023 Humiliation, Afraid, Rape, and Kick questionnaire [HARK] [facility] Within the last year , have you been afraid of your partner or ex-partner? No [facility] Are you now , , , , never or living with a partner? [facility] How often to you hav e a drink containing alcohol? Monthly or less [facility] How many standard dr inks containing alcohol do you have on a typical day? 1 or 2 [facility] How often do you hav e 6 or more drinks on 1 occasion? Never [facility] How hard is it for y ou to pay for the very basics like food, housing, medical care, and heating Not hard at all [facility] Do you feel stress - tense, restless, nervous, or anxious, or unable to sleep at night because your mind is troubled all the time - these days [OSQ] Only a little [facility] (I/We) worried wheth er (my/our) food would run out before (I/we) got money to buy more. Never true [facility] Start: 06-02-2023 Alcohol Comment Alcohol: 1 or 2 drinks on a typical day/monthly or less Caffeine: 2-3 cups/day coffee, pop daily [facility] Start: 1990 Sex assigned at Not on file [facility] History of Present illness Narrative 08-26-2024 Clara Petty - 08/26/2024 2:10 PM EST Note Date & Type Note Facility 08-26-2024 History of Presen t illness Narrative Reason for Appointment: Patient ID: Vannesa Zavaleta is a 34 y.o. female who presents for PCOS Patient presents today to be checked PCOS. 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 Chronic sinusitis 09/08/2020 Moderate episode of recurrent major depressive disorder ([facility]) 06/30/2023 Obesity with body mass index 30 or greater 12/07/2018 Sleep disturbances 06/30/2023 Stress 09/13/2017 Resolved Ambulatory Problems Diagnosis Date Noted No Resolved Ambulatory Problems Past Medical History: Diagnosis Date Anxiety Depression ([facility]) Irregular periods Menorrhagia Miscarriage 06/2014 Mood change Pelvic pain HISTORY PAST MEDICAL HISTORY SOCIAL HISTORY Past Medical History: Diagnosis Date Abnormal weight gain Anxiety Anxiety disorder 06/30/2023 Depression ([facility]) Irregular periods Menorrhagia Miscarriage 06/2014 Mood change Pelvic pain Social History Tobacco Use Smoking status: Never Smokeless tobacco: Never Vaping Use Vaping status: Never Used Substance Use Topics Alcohol use: Not Currently Comment: Alcohol: 1 or 2 drinks on a typical day/monthly or less Caffeine: 2-3 cups/day coffee, pop daily Drug use: Never FAMILY HISTORY Family History Problem Relation Name Age of Onset Heart disease Mother Nayeli Butler Rheum arthritis Mother Nayeli Butler Fibromyalgia Mother Nayeli Butler Anxiety disorder Mother Nayeli Butler Depression Mother Nayeli Butler Heart disease Father No Known Problems Brother Depression Other Spouse paxil - sees Dr. Carrillo No Known Problems Son No Known Problems Son SURGICAL HISTORY Past Surgical History: Procedure Laterality Date PAP SMEAR 05/31/2022 Negative REVIEW OF SYSTEMS Review of Systems: Review of Systems Constitutional: Negative. HENT: Negative. Eyes: Negative. Respiratory: Negative. Cardiovascular: Negative. Gastrointestinal: Negative. Genitourinary: Negative. Musculoskeletal: Negative. Skin: Negative. Neurological: Negative. All other systems reviewed and are negative. Hematological: Negative. Endocrine: Negative. Allergic/Immunologic: Negative. OBJECTIVE Objective: Physical Exam Constitutional: Appearance: Normal appearance. She is well-developed. Cardiovascular: Rate and Rhythm: Normal rate and regular rhythm. Pulmonary: Effort: Pulmonary effort is normal. Breath sounds: Normal breath sounds. Abdominal: General: Bowel sounds are normal. There is no distension. Palpations: Abdomen is soft. Tenderness: There is no abdominal tenderness. There is no guarding or rebound. Musculoskeletal: General: No swelling. Normal range of motion. Right lower leg: No edema. Left lower leg: No edema. Neurological: Mental Status: She is alert and oriented to person, place, and time. Skin: General: Skin is warm and dry. Psychiatric: Mood and Affect: Mood normal. Behavior: Behavior normal. Vitals and nursing note reviewed. Exam conducted with a director of guidance in public schools present. Vitals: Estimated body mass index is 32.57 kg/m as calculated from the following: Height as of this encounter: 5' 10 . Weight as of this encounter: 227 lb. BP: Patient's last menstrual period was 08/19/2024. ASSESSMENT & PLAN ICD-10-CM 1. PCOS (polycystic ovarian syndrome) E28.2 hCG, quantitative, TSH T4, free CBC and differential Follicle stimulating hormone Luteinizing hormone Hemoglobin A1c DHEA-sulfate DHEA US PELVIS-TRANSVAG IF INDICATED DHEA Patient presents today to discuss PCOS, irregular cycles and fertility. Patient was given Semen Analysis for her Spouse: Jefferson Zavaleta : 03/31/1996. Patient was also given labs and US to have done prior to [facility] in a few weeks with Dr. Pulido to discuss results. Patient was also given handout with [employer] instructions and direct extension to Shayla's line for future fertility. Patient to follow up in 2-3 weeks with [facility]. Documented by Shayla Chavira LPN on behalf of: Angélica Pulido DO documented in this encounter [facility] Evaluation note Note Date & Type Note Facility Evaluation note Diagnosis PCOS (polycystic ovarian syndrome) Polycystic ovaries documented in this encounter [facility] Summary Purpose Family History No Family History Records FoundNo Family History Records FoundNo Family History Records FoundNo Family History Records Found Advance Directives No Advanced Directives Records FoundNo Advanced Directives Records FoundNo Advanced Directives Records FoundNo Advanced Directives Records Found Additional Source Comments INFORMATION SOURCE (unrecogn ized section and content) DATE CREATED AUTHOR 09/02/2020 [facility] DATE CREATED AUTHOR AUTHOR'S ORGANIZ ATION 10/13/2022 [facility] DATE CREATED AUTHOR AUTHOR'S ORGANIZ ATION 09/23/2023 [facility] DATE CREATED AUTHOR AUTHOR'S ORGANIZ ATION 08/27/2024 [facility] PSYCHIATRIC Care Teams (unrecognized sec tion and content) Key Ringer Relationship Specialty Start Date End Date Pam Molina MD [address] [place] [address] PCP - General Family Medicine 02/28/23 Key Ringer Relationship Specialty Start Date End Date Pam Molina MD [address] [place] [address] PCP - General Family Medicine 02/28/23 Reason for Visit (unrecogniz ed section and content) Reason Comments PCOS FOR RECORDS PERTAINING TO PATIENTS WHO ARE OR HAVE BEEN ENROLLED IN A CHEMICAL DEPENDENCY/SUBSTANCEABUSE PROGRAM, SOME INFORMATION MAY BE OMITTED. This clinical summary was aggregated from multiple sources. Caution should be exercised in using it in the provision of clinical care. This summary normalizes information from multiple sources, and as a consequence, information in this document may materially change the coding, format and clinical context of patient data. In addition, data may be omitted in some cases. CLINICAL DECISIONS SHOULD BE BASED ON THE PRIMARY CLINICAL RECORDS. [employer] provides no warranty or guarantee of the accuracy or completeness of information in this document.
[2024-09-03 08:54] LABS: Basophils Percent Auto 0.4 % (0.2-2.0); Eosinophils Absolute Auto 0.1 10^3/uL (0.0-0.7); Eosinophils Percent Auto 1.2 % (0.9-7.0); Hematocrit 42.2 % (36.0-48.0); Immature Granulocytes Abs Auto 0.01 10^3/uL (0.00-0.03); Immature Granulocytes Pct Auto 0.1 % (0.0-0.5); Lymphocytes Absolute Auto 2.3 10^3/uL (1.2-3.8); Lymphocytes Percent Auto 33.7 % (20.5-60.0); Mean Corpuscular HGB Conc 33.2 g/dL (29.9-35.2); Mean Corpuscular Hemoglobin 30.4 pg (26.7-34.0); Mean Corpuscular Volume 91.5 fL (81.0-99.0); Mean Platelet Volume 9.4 fL (9.5-13.5); Monocytes Absolute Auto 0.5 10^3/uL (0.3-0.8); Monocytes Percent Auto 7.9 % (1.7-12.0); Neutrophils Absolute Auto 3.8 10^3/uL (1.4-6.5); Neutrophils Percent Auto 56.7 % (43.0-75.0); Platelet Count 341 10^3/uL (150-450); Red Blood Count 4.61 10^6/uL (4.20-5.40); Red Cell Distribution Width 12.5 % (11.0-15.0); White Blood Count 6.7 10^3/uL (4.0-11.0)
[2024-09-03 09:07] LABS: Estimated Average Glucose 103 mg/dL; Glycohemoglobin A1C 5.2 % (4.5-6.2)
[2024-09-03 09:22] LABS: Free T4 0.86 ng/dL (0.76-1.46)
[2024-09-03 09:42] LABS: HCG Quantitative <1 mIU/mL; Thyroid Stimulating Hormone 1.881 uIU/mL (0.358-3.740)
[2024-09-04 04:08] LABS: FSH 5.3 mIU/mL (.); Luteinizing Hormone(LH) 4.9 mIU/mL (.)
== END 2024-09-03 08:30 | disposition home or self-care (01) ==
LOC: US 08:29
PROVIDERS: PCP Family Medicine; Visit Provider Obstetrics & Gynecology
DX: E28.2 Polycystic ovarian syndrome (principal)
CPT/HCPCS: 36415; 76830; 76856; 82626; 82627; 83001; 83002; 83036; 84439; 84443; 84702; 85025

== ENCOUNTER 2025-01-28 20:30 | Outpatient (REF) | payer OTHER, SELFPAY ==
--- OUTSIDE RECORDS SUMMARY | 2025-01-28 20:37 | XMS_ITS | CCD ---
Author Organization [facility] Care Team Providers Care Ski Guide Name Role Phone ASHOK, DR LINDSAY Consulting Unavailable MISC, DR CHAUDHARI Primary Care Unavailable ASHOK, DR LINDSAY Admitting Unavailable ASHOK, DR LINDSAY Attending Unavailable ASHOK, DR LINDSAY Consulting Unavailable ASHOK, DR LINDSAY Admitting Unavailable MISC, DR CHAUDHARI Primary Care Unavailable ASHOK, DR LINDSAY Attending Unavailable TRACY, DR PAM Rosenthal Primary Care Unavailable SUNITA, AMBER Attending Unavailable SUNITA, AMBER Consulting Unavailable SUNITA, AMBER Admitting Unavailable MISC, DR CHAUDHARI Primary Care Unavailable JULIANA, SHELLI Attending Unavailable JULIANA, SHELLI Admitting Unavailable OMAYRA, MAMTA Attending Unavailable OMAYRA, MAMTA Consulting Unavailable MAMTA CUTLER Admitting Unavailable MISC, DR CHAUDHARI Primary Care Unavailable ASHOK, DR LINDSAY Consulting Unavailable MISC, DR CHAUDHARI Primary Care Unavailable ASHOK, DR LINDSAY Admitting Unavailable ASHOK, DR LINDSAY Attending Unavailable ZIEBKELSEY, DR LEONARD Ibarra Consulting Unavailable ALLISON TOTH Referring Unavailable Pam Molina MD Primary Care Provider ARGENTINA ALDRIDGE Attending Unavailable SHELLI ANDREWS Attending Unavailable KAMALA WALSH Attending Unavailable ANGÉLICA PULIDO Attending Unavailable ARGENTINA ALDRIDGE Attending Unavailable ARGENTINA ALDRIDGE Attending Unavailable Allergies Allergy Classification Reported Allergen(s) Allergy Type Date of Onset Reaction(s) Facility (20 sources) Amoxicillin Drug Allergy 06-06-2023 Rash [facility] Work Phone: (20 sources) Ciprofloxacin Drug Allergy 06-06-2023 Headache [facility] (20 sources) Escitalopram Drug Allergy 06-30-2023 [facility] (20 sources) venlafaxine Drug Allergy 06-30-2023 [facility] Medications Current Medications Medication Drug Class(es) Dates Sig (Normalized) Sig (Original) azithromycin 250 mg oral tablet (2 sources) Macrolide Antimicrobial Start: 12-17-2024 End: 12-22-2024 take 2 tablets by mouth once daily, then take 1 tablet by mouth once daily azithromycin (Zithromax) 250 MG tablet Indications: Acute non-recurrent maxillary sinusitis Take 2 tablets (500 mg) by mouth Daily for 1 day, THEN 1 tablet (250 mg) Daily for 4 days. 6 tablet 12/17/2024 12/22/2024 Active cefdinir 300 mg oral capsule (1 source) Cephalosporin Antibacterial Start: 12-23-2024 End: 12-30-2024 take 1 capsule by mouth in the morning cefdinir (Omnicef) 300 MG capsule Indications: Sinus pressure , Ear pain, left , Nasal congestion Take 1 capsule (300 mg) by mouth in the morning and 1 capsule (300 mg) before bedtime. Do all this for 7 days. 14 capsule 12/23/2024 12/30/2024 Active Completed/Discontinued Medications Medication Drug Class(es) Dates Sig [...] MG tablet Take by mouth. 08/26/2024 Discontinued 24 hr metFORMIN hydrochloride 500 mg extended release oral tablet (20 sources) Biguanide Start: 09-16-2024 End: 12-05-2025 take 2 tablets by mouth every twenty-four hours at mealtime metFORMIN XR (Glucophage-XR) 500 MG 24 hr tablet Indications: Insulin resistance Take 2 tablets (1,000 mg) by mouth in the evening. Take with meals Do not crush, chew, or split. 60 tablet 11 12/05/2024 01/28/2025 Discontinued (Other) Start: 08-27-2024 End: 12-17-2024 take 1 tablet by mouth every twenty-four hours in the morning metFORMIN XR (Glucophage-XR) 500 MG 24 hr tablet Indications: PCOS (polycystic ovarian syndrome) Take 1 tablet (500 mg) by mouth in the morning and 1 tablet (500 mg) before bedtime. Do not crush, chew, or split.. 60 tablet 11 09/09/2024 12/17/2024 Discontinued (Therapy completed) MULTIPLE VITAMIN PO (3 sources) End: 08-26-2024 MULTIPLE VITAMIN PO Take by mouth. 08/26/2024 Discontinued MULTIPLE VITAMIN PO Take by mouth. Active phentermine hydrochloride 37.5 mg oral tablet (20 sources) Sympathomimetic Amine Anorectic Start: 10-10-2024 End: 03-05-2025 take 1 tablet by mouth before mealtime phentermine (Adipex-P) 37.5 MG tablet Indications: Encounter for weight management Take 1 tablet (37.5 mg) by mouth in the morning. Take before meals. 90 tablet 12/05/2024 01/28/2025 Discontinued (Other) Problems Active Problems Problem Classification Problem Date Documented Da te Episodic/Chronic Adjustment disorders (20 sources) Stress; Translations: [Reaction to severe stress, unspecified] Onset: 09-13-2017 06-30-2023 Chronic Administrative/social admission (7 sources) Encounter for pre-employment examination; Translations: [Patient encounter status] Onset: 09-15-2023 Episodic Anxiety disorders (20 sources) Anxiety disorder; Translations: [Anxiety disorder, unspecified] Onset: 06-30-2023 06-30-2023 Chronic Contraceptive and procreative management (2 sources) Patient encounter status; Translations: [Encounter for fertility testing] 09-24-2024 Episodic Menstrual disorders (4 sources) Irregular menstruation, unspecified; Translations: [IRREGULAR MENSTRUATION UNSPECIFIED] Onset: 06-30-2022 Chronic Mood disorders (20 sources) Depressive disorder; Translations: [Depressive disorder] Onset: 11-15-2017 06-30-2023 Chronic Other ear and sense organ disorders (2 sources) Otalgia, left ear; Translations: [Otalgia, unspecified] 12-17-2024 Episodic Other endocrine disorders (2 sources) Polycystic ovary syndrome; Translations: [Polycystic ovarian syndrome] 08-26-2024 Chronic Other nutritional; endocrine; and metabolic disorders (20 sources) Metabolic syndrome X; Translations: [Insulin resistance syndrome] Onset: 06-30-2023 06-30-2023 Chronic Other nutritional; endocrine; and metabolic disorders (20 sources) Lipoprotein deficiency disorder; Translations: [Lipoprotein deficiency] Onset: 05-27-2019 06-30-2023 Chronic Other nutritional; endocrine; and metabolic disorders (20 sources) Body mass index 30+ - obesity; Translations: [Obesity, unspecified] Onset: 12-07-2018 06-30-2023 Chronic Other nutritional; endocrine; and metabolic disorders (4 sources) Insulin resistance; Translations: [Insulin resistance] 09-24-2024 Chronic Other nutritional; endocrine; and metabolic disorders (2 sources) Weight increased; Translations: [Abnormal weight gain] 10-10-2024 Episodic Other screening for suspected conditions (not mental disorders or infectious disease) (6 sources) Encounter for screening for malignant neoplasm of cervix; Translations: [Semen exam: abnormal] Onset: 05-31-2022 Episodic Other upper respiratory disease (2 sources) Other specified disorders of nose and nasal sinuses; Translations: [Other disease of nasal cavity and sinuses] 12-17-2024 Episodic Other upper respiratory disease (2 sources) Nasal congestion; Translations: [Nasal congestion] 12-17-2024 Episodic Other upper respiratory infections (20 sources) Chronic sinusitis; Translations: [Chronic sinusitis, unspecified] Onset: 09-08-2020 06-30-2023 Chronic Other upper respiratory infections (2 sources) Acute maxillary sinusitis; Translations: [Acute maxillary sinusitis, unspecified] 12-17-2024 Episodic Past or Other Problems Problem Classification Problem Date Documented Date Episodic/Chronic Biliary tract disease (20 sources) Gallstone; Translations: [Calculus of gallbladder without cholecystitis without obstruction] Onset: 09-28-2020 06-30-2023 Episodic Immunizations and screening for infectious disease (1 source) Encounter for screening for human papillomavirus (HPV); Translations: [ENC SCREENING HUMAN PAPILLOMAVIRUS] Onset: 06-01-2022 Episodic Other nutritional; endocrine; and metabolic disorders (20 sources) Abnormal weight gain; Translations: [Abnormal weight gain] Onset: 06-30-2023 06-30-2023 Episodic Other skin disorders (20 sources) Keratosis pilaris; Translations: [Other specified epidermal thickening] Onset: 04-19-2019 06-30-2023 Episodic Residual codes; unclassified (20 sources) Disturbance in sleep behavior; Translations: [Sleep disorder, unspecified] Onset: 06-30-2023 06-30-2023 Episodic Results Test Name Value Interpretation Reference Range Facility HCG ( test) Ql (U)o n 10-10-2024 Interpretation and review of laboratory results Normal [facility] Preg Test, Ur Negative Negative [facility] ALL DEHYDROEPIANDROSTERONEon 09-08-2024 DHEA, SERUM 454 ng/dL 31 - 701 ng/dL [facility] Comment on above: This test was develo ped and its performance characteristics determined by [facility]. It has not been cleared or approved by the Food and Drug Administration. Performed at: [address] [id number] Green Chain Marker: Ania Angel MD, Phone: [phone] [facility] ALL DHEA SULFATEon DHEA-SULFATE 331.0 ug/dL 84.8 - 378.0 ug/dL [facility] ALL FOLLICLE STIMULATING HOR MONEon 09-04-2024 FSH 5.3 . mIU/mL [facility] Comment on above: Adult Female Range Follicular phase 3.5 - 12.5 Ovulation phase 4.7 - 21.5 Luteal phase 1.7 - 7.7 Postmenopausal 25.8 - 134.8 Performed at: [address] [id number] Green Chain Marker: Colby Reich PhD, Phone: [phone] ALL LUTEINIZING HORMONEon LUTEINIZING HORMONE(LH) 4.9 . mIU/mL [facility] Comment on above: Adult Female Range Follicular phase 2.4 - 12.6 Ovulation phase 14.0 - 95.6 Luteal phase 1.0 - 11.4 Postmenopausal 7.7 - 58.5 No Panel Informationon 09-04 [facility] ALL CBC WITH AUTO DIFFon BASOPHILS ABSOLUTE AUTO 0 [facility] Basophils/100 WBC (Bld) 0.4 % 0.2 - 2.0 % [facility] Eosinophils/100 WBC (Bld) 1.2 % 0.9 - 7.0 % [facility] Erythrocyte distribution width (RBC) [Ratio] 12.5 % 11.0 - 15.0 % [facility] Hematocrit (Bld) [Volume fraction] 42.2 % 36.0 - 48.0 % [facility] Hemoglobin (Bld) [Mass/Vol] 14 g/dL 12.0 - 16.0 g/dL [facility] IMMATURE GRANULOCYTES ABS AUTO 0.01 [facility] Immature granulocytes/100 WBC (Bld) 0.1 % 0.0 - 0.5 % [facility] Interpretation and review of laboratory results Abnormal [facility] LYMPHOCYTES ABSOLUTE AUTO 2.3 [facility] Lymphocytes/100 WBC (Bld) 33.7 % 20 .5 - 60.0 % [facility] MCH (RBC) [Entitic mass] 30.4 pg 26. 7 - 34.0 pg [facility] MCHC (RBC) [Mass/Vol] 33.2 g/dL 29.9 - 35.2 g/dL [facility] MCV (RBC) [Entitic vol] 91.5 fL 81.0 - 99.0 fL [facility] MONOCYTES ABSOLUTE AUTO 0.5 [facility] Monocytes/100 WBC (Bld) 7.9 % 1.7 - 12.0 % [facility] NEUTROPHILS ABSOLUTE AUTO 3.8 [facility] Neutrophils/100 WBC (Bld) 56.7 % 43 .0 - 75.0 % [facility] Platelet mean volume (Bld) [Entitic vol] 9.4 fL Low 9.5 - 13.5 fL [facility] EO # 0.1 [facility] PLT 341 [facility] RBC 4.61 [facility] WBC 6.7 [facility] ALL THYROID STIM HORMONEon 11-03-2023 TSH Qn 1.881 m[IU]/L [facility] ALL THYROXINE (T4) FREEon Free T4 [Mass/Vol] 0.86 ng/dL 0.76 - 1. 46 ng/dL [facility] MLR HEMOGLOBIN A1Con 024 Glucose [Mass/Vol] 103 mg/dL [facility] HbA1c (Bld) [Mass fraction] 5.2 % 4.5 - 6. 2 % [facility] Comment on above: ADA RECOMMENDED LIMI T 4.0 - 6.0 ADA THERAPEUTIC TARGET < 7.0 ACTION SUGGESTED > 7.0 [facility] [place] No Panel Informationon 09-03 [facility] [place] TBH PREG QUANT HCGon 024 HCG QUANTITATIVE <1 mIU/mL [facility] Comment on above: 5-50 0.2-1 WEEK 50-500 1-2 WEEKS 100-5,000 2-3 WEEKS 500-10,000 3-4 WEEKS 1,000-50,000 4-5 WEEKS 10,000-100,000 5-6 WEEKS 15,000-200,000 6-8 WEEKS 10,000-100,000 2-3 MONTHS Miscel, Frozenon 09-21-2023 Send Out Report SEE NOTE Normal [facility] Comment on above: Result Comment: (NOT E) Test name Result Flag Units RefIntvl --- Varicella-Zoster Virus Ab, IgG 1789.0 IV INTERPRETIVE [...] laboratory at the same time. Performed By: [place] [address] Payroll Assistant: Andrew Garza MD, PhD CLIA Number: [id number] Performed By: #### M [facility] #### [place] [address] Green Chain Marker: Gunner Andrews MD [employer] [address] [place] [address] Green Chain Marker: Shaun Chavez MD Miscel, Frozenon 09-19-2023 Test Name VZ IGG [facility] [id number] Normal [facility] Comment on above: Performed By: #### M ISC #### [facility] [address] [place] [address] Green Chain Marker: Gunner Andrews MD [facility] [address] [place] [address] Green Chain Marker: Shaun Chavez MD GLUCOSE BLOODon 10-06-2022 Glucose [Mass/Vol] 81 mg/dL Normal 74-106 [facility] Comment on above: Performed By: #### L IPID, GLUC #### [facility] [address] [place] [address] Dr. Shantell Nuñez LIPID PROFILEon 10-06-2022 CHOL-HDL RATIO NORM SEE BELOW Normal [facility] Comment on above: Result Comment: 3.3 - 4.4 LOW RISK 4.4 - 7.1 AVERAGE RISK 7.1 - 11.0 MODERATE RISK >11.0 HIGH RISK Performed By: #### L IPID, GLUC #### [facility] [address] [place] [address] Dr. Shantell Nuñez Cholesterol [Mass/Vol] 163 mg/dL Normal <=200 [facility] Comment on above: Performed By: #### L IPID, GLUC #### [facility] [address] [address] [address] Shantell Nuñez Cholesterol in HDL [Mass/Vol] 43 mg/dL Normal 40-60 [facility] Comment on above: Performed By: #### L IPID, GLUC #### [facility] [address] [address] [address] Shantell Nuñez Cholesterol in LDL [Mass/Vol] 107.4 mg/dL Normal [facility] Comment on above: Performed By: #### L IPID, GLUC #### [facility] [address] [address] [address] Shantell Nuñez Cholesterol.total/Cholester ol in HDL [Mass ratio] 3.8 {ratio} Normal [facility] Comment on above: Performed By: #### L IPID, GLUC #### [facility] [address] [place] [address] Dr. Shantell Nuñez HDL NORMAL > or = 60 mg/dl - LOW CARDIOVASCULAR RISK <40 mg/dl - HIGH CARDIOVASCULAR RISK Normal [facility] Comment on above: Performed By: #### L IPID, GLUC #### [facility] [address] [address] [address] Shantell Nuñez LDL CALC NORMAL SEE BELOW Normal [facility] Comment on above: Result Comment: <100 mg/dl OPTIMAL 100 - 129 mg/dl NEAR OR ABOVE OPTIMAL 130 - 159 mg/dl BORDERLINE HIGH 160 - 189 mg/dl HIGH >190 mg/dl VERY HIGH Performed By: #### L IPID, GLUC #### [facility] [address] [place] [address] Dr. Shantell Nuñez Triglyceride [Mass/Vol] 63 mg/dL Normal <=150 [facility] Comment on above: Performed By: #### L IPID, GLUC #### [facility] [address] [place] [address] Dr. Shantell Nuñez VLDL CALC 12.6 mg/dL Normal [facility] Comment on above: Performed By: #### L IPID, GLUC #### [facility] [address] [place] [address] Dr. Shantell Nuñez CBC AUTO DIFFon 06-30-2022 BASO # 0.0 103/ul Normal 0.0-0.1 [facility] Comment on above: Performed By: #### C BC #### [facility] [address] [place] [address] Dr. Shantell Nuñez Basophils/100 WBC (Bld) 0.3 % Normal 0.2-2.0 [facility] Comment on above: Performed By: #### C BC #### [facility] [address] [place] [address] Dr. Shantell Nuñez EO # 0.1 103/ul Normal 0.0-0.7 [facility] Comment on above: Performed By: #### C BC #### [facility] [address] [place] [address] Dr. Shantell Nuñez Eosinophils/100 WBC (Bld) 0.7 % Critically low 0.9-7. 0 [facility] Comment on above: Performed By: #### C BC #### [facility] [address] [place] [address] Dr. Shantell Nuñez Erythrocyte distribution width (RBC) [Ratio] 12.8 % Normal 11.0-15.0 [facility] Comment on above: Performed By: #### C BC #### [facility] [address] [place] [address] Dr. Shantell Nuñez Hematocrit (Bld) [Volume fraction] 42.4 % Normal 36.0-48.0 [facility] Comment on above: Performed By: #### C BC #### [facility] [address] [place] [address] Dr. Shantell Nuñez Hemoglobin (Bld) [Mass/Vol] 13.9 g/dL Normal 12.0-16. 0 [facility] Comment on above: Performed By: #### C BC #### [facility] [address] [place] [address] Dr. Shantell Nuñez IG # 0.03 10e3/ul Normal 0.00-0.03 [facility] Comment on above: Performed By: #### C BC #### [facility] [address] [place] [address] Dr. Shantell Nuñez IG % 0.3 % Normal 0.0-0.5 [facility] Comment on above: Performed By: #### C BC #### [facility] [address] [place] [address] Dr. Shantell Nuñez LYMPH # 2.3 103/ul Normal 1.2-3.8 [facility] Comment on above: Performed By: #### C BC #### [facility] [address] [place] [address] Dr. Shantell Nuñez Lymphocytes/100 WBC (Bld) 23.3 % Normal 20.5-60.0 [facility] Comment on above: Performed By: #### C BC #### [facility] [address] [place] [address] Dr. Shantell Nuñez MANUAL DIFF REQ NO Normal [facility] Comment on above: Performed By: #### C BC #### [facility] [address] [place] [address] Dr. Shantell Nuñez MCH (RBC) [Entitic mass] 30.0 pg Normal 26.7-34.0 [facility] Comment on above: Performed By: #### C BC #### [facility] [address] [place] [address] Dr. Shantell Nuñez MCHC (RBC) [Mass/Vol] 32.8 g/dL Normal 29.9-35.2 [facility] Comment on above: Performed By: #### C BC #### [facility] [address] [place] [address] Dr. Shantell Nuñez MCV (RBC) [Entitic vol] 91.4 fL Normal 81.0-99.0 [facility] Comment on above: Performed By: #### C BC #### [facility] [address] [place] [address] Dr. Shantell Nuñez MONO # 0.8 103/ul Normal 0.3-0.8 [facility] Comment on above: Performed By: #### C BC #### [facility] [address] [place] [address] Dr. Shantell Nuñez Monocytes/100 WBC (Bld) 7.5 % Normal 1.7-12.0 [facility] Comment on above: Performed By: #### C BC #### [facility] [address] [place] [address] Dr. Shantell Nuñez NEUT # 6.8 103/ul Critically high 1.4-6.5 [facility] Comment on above: Performed By: #### C BC #### [facility] [address] [place] [address] Dr. Shantell Nuñez Neutrophils/100 WBC (Bld) 67.9 % Normal 43.0-75.0 [facility] Comment on above: Performed By: #### C BC #### [facility] [address] [place] [address] Dr. Shantell Nuñez Platelet mean volume (Bld) [Entitic vol] 9.3 fL Critically low 9.5-13.5 [facility] Comment on above: Performed By: #### C BC #### [facility] [address] [place] [address] Dr. Shantell Nuñez PLT 338 103/ul Normal 150-450 [facility] Comment on above: Performed By: #### C BC #### [facility] [address] [place] [address] Dr. Shantell Nuñez RBC 4.64 106/ul Normal 4.20-5.40 [facility] Comment on above: Performed By: #### C BC #### [facility] [address] [place] [address] Dr. Shantell Nuñez WBC 10.0 103/ul Normal 4.0-11.0 [facility] Comment on above: Performed By: #### C BC #### [facility] [address] [place] [address] Dr. Shantell Nuñez PREG QUANT HCGon 06-30-2022 HCG QUANT 1 mIU/mL Normal [facility] Comment on above: Performed By: #### T SH, PREGQNT #### [facility] [address] [place] [address] Dr. Shantell Nuñez HCG RANGE SEE BELOW Normal [facility] Comment on above: Result Comment: 5-50 0.2-1 WEEK 50-500 1-2 WEEKS 100-5,000 2-3 WEEKS 500-10,000 3-4 WEEKS 1,000-50,000 4-5 WEEKS 10,000-100,000 5-6 WEEKS 15,000-200,000 6-8 WEEKS 10,000-100,000 2-3 MONTHS Performed By: #### T SH, PREGQNT #### [facility] [address] [place] [address] Dr. Shantell Nuñez PROTIMEon 06-30-2022 INR Coag (PPP) [Relative time] 0.98 {INR} Normal [facility] Comment on above: Performed By: #### P TT, PT #### [facility] [address] [place] [address] Dr. Shantell Nuñez INR GUIDELINES SEE BELOW Normal [facility] Comment on above: Result Comment: CÉSAR RED INR: 2.0 - 3.0 CONDITIONS NOT LISTED BELOW 2.5 - 3.5 FOR PROSTHETIC HEART VALVE REPLACEMENT 2.5 - 3.5 RECURRENT THROMBOSIS Performed By: #### P TT, PT #### [facility] [address] [place] [address] Dr. Shantell Nuñez PT Coag (PPP) [Time] 10.6 s Normal 9.0-11.6 [facility] Comment on above: Performed By: #### P TT, PT #### [facility] [address] [place] [address] Dr. Shantell Nuñez PTTon 06-30-2022 aPTT Coag (Bld) [Time] 26.8 s Normal 22.3-36.2 [facility] Comment on above: Performed By: #### P TT, PT #### [facility] [address] [place] [address] Dr. Shantell Nuñez TSHon 06-30-2022 TSH 1.354 uIU/mL Normal 0.358-3.[address] [facility] Comment on above: Performed By: #### T SH, PREGQNT #### [facility] [address] [place] [address] Dr. Shantell Nuñez US PELVIS AND TRANSVAGon [...] by: LEONARD JENKINS Date: 2022-06-30 11:56 Normal [facility] PAP ACOG PANEL 2: 30 to 65on 06-06-2022 . . Normal [facility] Comment on above: Result Comment: Perf ormed at: WB Performed By: #### [id number] #### [facility] [address] [address] [address] Shantell Nuñez Age Gdln ACOG Testing 30-65 Normal [facility] Comment on above: Performed By: #### [id number] #### [facility] [address] [place] [address] Dr. Shantell Nuñez DIAGNOSIS: Comment Normal [facility] Comment on above: Result Comment: NEGA TIVE FOR INTRAEPITHELIAL LESION OR MALIGNANCY. Performed at: WB Performed By: #### [id number] #### [facility] [address] [address] [address] Shantell Nuñez HPV Aptima Negative Normal Negative [facility] Comment on above: Result Comment: This nucleic acid amplification test detects fourteen high-risk HPV types (16,18,31,33,35,39,45,51,52,56,58,59,66,68) without differentiation. Performed at: =G Performed By: #### [id number] #### [facility] [address] [address] [address] Shantell Nuñez Methodology: Comment Normal [facility] Comment on above: Result Comment: This liquid based ThinPrep(R) pap test was screened with the use of an image guided system. Performed at: WB Performed By: #### [id number] #### [facility] [address] [place] [address] Dr. Shantell Nuñez Note: Comment Normal [facility] Comment on above: Result Comment: The Pap smear is a screening test designed to aid in the detection of premalignant and malignant conditions of the uterine cervix. It is not a diagnostic procedure and should not be used as the sole means of detecting cervical cancer. Both false-positive and false-negative reports do occur. . Performed at: WB Performed By: #### 4 [id number] #### [facility] [address] [place] [address] Dr. Shantell Nuñez Performed by: Comment Normal [facility] Comment on above: Result Comment: Anamaria Brown, Tax Accounting Manager (ASCP) Performed at: WB Performed By: #### 4 [id number] #### [facility] [address] [address] [address] Shantell Nuñez Specimen adequacy: Comment Normal [facility] Comment on above: Result Comment: Sati sfactory for evaluation. Endocervical and/or squamous metaplastic cells (endocervical component) are present. Performed at: WB Performed By: #### 4 [id number] #### [facility] [address] [place] [address] Dr. Shantell Nuñez PREG QUANT HCGon 10-21-2021 HCG QUANT 1 mIU/mL [facility] Comment on above: Performed By: #### P REGQNT #### [facility] [address] [place] [address] Dr. Shantell Nuñez HCG RANGE SEE BELOW [facility] Comment on above: Result Comment: 5-50 0-1 WEEK 40-300 1-2 WEEKS 100-1,000 2-3 WEEKS 500-6,000 3-4 WEEKS 5,000-200,000 1-2 MONTHS 10,000-100,000 2-3 MONTHS 3,000-50,000 2ND TRIMESTER 1,000-50,000 3RD TRIMESTER Performed By: #### P REGQNT #### [facility] [address] [place] [address] Dr. Shantell Nuñez Infection Prevention Noteon 09-01-2020 Infection Prevention Note Case entered i nto the [place] Disease Reporting System (ODRS). ODRS #[id number]. Info [facility] Case was entered on 08/28/2020 [facility] Consent Formson 08-31-2020 Consent Forms [id number] 8F#1.00OTGTIFF [facility] .QC Respiratory Panel 2.1 (B ioFire)on 08-27-2020 Internal Control-Resp Panel 2.1(BioFire) Pass [facility] Comment on above: Order Comment: Order ed by Archie.[[id number]] Performed By: #### 6 [id number] ####[facility] (DEFAULT)[address] [place] [address] Progress Note - Nurseon Progress Note - Nurse Employee called an d informed of positive covid results. [Electronically Signed on: 08/27/2020 09:43 EST] __ Claribel Morales RN [Verified on: 08/27/2020 09:43 EST] __ Claribel Morales RN [facility] Progress Note - Nurse Nasal swab performed without complication. Patient tolerated well. Education given. Patient verbalized understanding. [Electronically Signed on: 08/27/2020 08:44 EST] __ Sania Khan RN [Verified on: 08/27/2020 08:44 EST] __ Sania Khan RN [facility] Lab - AP Resultson 0 Lab - AP Results [id number] 7F#1.00OTGTIFF [facility] T-Spoton 08-14-2020 T-Spot See Report [facility] Comment on above: Performed By: #### 3 [id number] ####[facility] (DEFAULT)[address] [place] [id number] Lab - AP Resultson 0 Lab - AP Results [id number] FB#1.00OTGTIFF [facility] Lab - Toxicology Resultson Lab - Toxicology Results [id number] 2D#1.00OTGTIFF [facility] T-Spoton 08-06-2020 T-Spot See Report [facility] Comment on above: Performed By: #### 3 [id number] #### [facility] (DEFAULT) [address] [place] [address] Hep B Surface Ab Qual LCon Hep B Surface Ab LC Reactive [facility] Comment on above: Result Comment: Non Reactive: Inconsistent with immunity, less than 10 mIU/mL Reactive: Consistent with immunity, greater than 9.9 mIU/mL Performed At: [employer] [address] [id number] Damir Bowman PhD Ph:[phone] Performed By: #### 3 [id number] #### [facility] (DEFAULT) [address] [place] [address] Measles/Mumps/Rubella Immuni ty LCon 08-04-2020 Mumps Abs, IgG LC <9.0 Low Immune >10.9 [facility] Comment on above: Result Comment: Nega tive <9.0 Equivocal 9.0 - 10.9 Positive >10.9 A positive result generally indicates past exposure to Mumps virus or previous vaccination. Performed At: [employer] [facility] [id number] [place], [place] [id number] Damir Bowman PhD Ph:[phone] Performed By: #### 3 [id number] #### [facility] (DEFAULT) [address] [place] [address] Rubella Antibodies, IgG LC 2.63 index I mmune >0.99 [facility] Comment on above: Result Comment: Non- immune <0.90 Equivocal 0.90 - 0.99 Immune >0.99 Performed By: #### 3 [id number] #### [facility] (DEFAULT) [address] [place] [address] Rubeola Ab, IgG, EIA LC 22.2 AU/mL Immu ne >16.4 [facility] Comment on above: Result Comment: Nega tive <13.5 Equivocal 13.5 - 16.4 Positive >16.4 Presence of antibodies to Rubeola is presumptive evidence of immunity except when acute infection is suspected. Performed By: #### 3 [id number] #### [facility] (DEFAULT) [address] [place] [address] Nicotine Metabolite, Urine L Con 08-04-2020 Cotinine LC Negative [id number] [facility] Comment on above: Result Comment: Perf ormed At: [facility] [address] [facility] [place], [place] [id number] Catalina Dey PhD Ph:[phone] Performed By: #### 1 [id number] #### [facility] (DEFAULT) [address] [place] [address] Vital Signs Date Time Vital Sign Value Performing Clinician Javier phoenix 01-28-2025 14:04-0400 Body mass index (BMI) [Ratio] 31.05 kg/m2 Amber Dorsey [employer] Work Phone: [facility] 01-28-2025 14:04-040 Body weight 98.16 kg Amber Dorsey [employer] Work Phone: [facility] 01-28-2025 14:04-0400 Diastolic blood pressure 76 mm[Hg] Amber Dorsey [employer] Work Phone: [facility] 01-28-2025 14:04-0400 Systolic blood pressure 114 mm[Hg] Amber Dorsey [employer] Work Phone: [facility] 12-17-2024 13:02-0500 Body mass index (BMI) [Ratio] 30.88 kg/m2 Shelli Andrews [employer] Work Phone: [facility] 12-17-2024 13:02-0500 Body temperature 98.01 [degF] Shelli Juliana [employer] Work Phone: [facility] 12-17-2024 13:02-0500 Body weight 97.61 kg Shelli Youngman [employer] Work Phone: [facility] 12-17-2024 13:02-0500 Diastolic blood pressure 80 mm[Hg] Shelli Juliana [employer] Work Phone: [facility] 12-17-2024 13:02-0500 Heart rate 96 /min Shelli Juliana [employer] Work Phone: [facility] 12-17-2024 13:02-0500 Systolic blood pressure 128 mm[Hg] Shelli Youngman [employer] Work Phone: [facility] 12-05-2024 13:47-0500 Body mass index (BMI) [Ratio] 30.68 kg/m2 Argentina Felipe PA Work Phone: [facility] 12-05-2024 13:47-0500 Body weight 96.98 kg Argentina Felipe PA Work Phone: [facility] 12-05-2024 13:47-0500 Diastolic blood pressure 76 mm[Hg] Argentina Felipe PA Work Phone: [facility] 12-05-2024 13:47-0500 Systolic blood pressure 116 mm[Hg] Argentina Kingwood PA Work Phone: [facility] 11-07-2024 15:25-0500 Body mass index (BMI) [Ratio] 31.42 kg/m2 Argentina Felipe PA Work Phone: [facility] 11-07-2024 15:25-0500 Body weight 99.34 kg Argentina Kingwood PA Work Phone: [facility] 11-07-2024 15:25-0500 Diastolic blood pressure 84 mm[Hg] Argentina Kingwood PA Work Phone: [facility] 11-07-2024 15:25-0500 Systolic blood pressure 126 mm[Hg] Argentina Felipe PA Work Phone: [facility] 10-10-2024 10:50-0500 Body mass index (BMI) [Ratio] 32.43 kg/m2 Argentina Andreaey PA Work Phone: [facility] 10-10-2024 10:50-0500 Body weight 102.51 kg Argentina Kingwood PA Work Phone: [facility] 10-10-2024 10:50-0500 Diastolic blood pressure 76 mm[Hg] Argentina Andreaey PA Work Phone: [facility] 10-10-2024 10:50-0500 Systolic blood pressure 122 mm[Hg] Argentina Andreaey PA Work Phone: [facility] 08-26-2024 14:33-0500 Body height 177.8 cm Angélica Ashok DO Work Phone: [facility] 08-26-2024 14:33-0500 Body mass index (BMI) [Ratio] 32.57 kg/m2 Angélica Ashok DO Work Phone: [facility] 08-26-2024 14:33-0500 Body weight 102.97 kg Angélica Ashok DO Work Phone: [facility] 08-26-2024 14:33-0500 Diastolic blood pressure 82 mm[Hg] Angélica Ashok DO Work Phone: [facility] 08-26-2024 14:33-0500 Systolic blood pressure 126 mm[Hg] Angélica Ashok DO Work Phone: [facility] Healthcare Encounters Encounter Date Encounter Type Care Provider Facility Start: 01-28-2025 End: 01-28-2025 Bamboo flowsheet Amber Dorsey [employer] Work Phone: [facility] Start: 01-28-2025 End: 01-28-2025 Bamboo flowsheet Amber Dorsey [employer] Work Phone: [facility] Start: 01-28-2025 End: 01-28-2025 Patient encounter procedure Amber Dorsey NP Work Phone: [facility] Work Phone: Start: 01-28-2025 End: 01-28-2025 Periodic preventive med est patient 18-39 yrs Amber Sunita [employer] Work Phone: [facility] Comment on above: Well woman exam with routine gynecological exam Start: 12-26-2024 End: 12-26-2024 Telephone encounter Pam Molina MD Work Phone: [facility] Start: 12-23-2024 End: 12-23-2024 Telephone encounter Pam Molina MD Work Phone: [facility] Start: 12-17-2024 End: 12-17-2024 Bamboo flowsheet Shelli Andrews [employer] Work Phone: [facility] Start: 12-17-2024 End: 12-17-2024 Bamboo flowsheet Shelli Andrews [employer] Work Phone: [facility] Start: 12-17-2024 End: 12-17-2024 Office outpatient visit 15 minutes Shelli Andrews [employer] Work Phone: [facility] Comment on above: Acute non-recurrent maxillary sinusitis (Primary Dx); Sinus pressure; Ear pain, left; Nasal congestion Start: 12-17-2024 End: 12-17-2024 ambulatory SHELLI ANDREWS Not Available Start: 12-05-2024 End: 12-05-2024 Bamboo flowsheet Argentina ASHRAF Work Phone: [facility] Start: 12-05-2024 End: 12-05-2024 Bamboo flowsheet Argentina ASHRAF Work Phone: [facility] Start: 12-05-2024 End: 12-05-2024 ambulatory ARGENTINA ALDRIDGE Not Available Start: 12-05-2024 End: 12-05-2024 Office outpatient visit 15 minutes Argentina ASHRAF Work Phone: [facility] Comment on above: Encounter for weight management; Insulin resistance Start: 11-07-2024 End: 11-07-2024 Office outpatient visit 5 minutes Argentina Aldridge PA Work Phone: [facility] Comment on above: Encounter for weight management Start: 11-07-2024 End: 11-07-2024 ambulatory ARGENTINA ALDRIDGE Not Available Start: 11-07-2024 End: 11-07-2024 Bamboo flowsheet Argentina Aldridge PA Work Phone: [facility] Start: 11-07-2024 End: 11-07-2024 Bamboo flowsheet Argentina Aldridge PA Work Phone: [facility] Start: 10-10-2024 End: 10-10-2024 Bamboo flowsheet Argentina Aldridge PA Work Phone: [facility] Start: 10-10-2024 End: 10-10-2024 Bamboo flowsheet Argentina Aldridge PA Work Phone: [facility] Start: 10-10-2024 End: 10-10-2024 Office outpatient visit 15 minutes Argentina Aldridge PA Work Phone: [facility] Comment on above: Weight gain; Encounter for weight management Start: 10-10-2024 End: 10-10-2024 ambulatory ARGENTINA ALDRIDGE Not Available Start: 09-24-2024 End: 09-24-2024 Phys/qhp telephone evaluation 5-10 min Angélica Ashok DO Work Phone: [facility] Comment on above: Fertility testing; Abnormal semen analysis; Insulin resistance Start: 09-03-2024 End: 09-03-2024 Clinisync Result Encounter Angélica Ashok DO Work Phone: [facility] External Department Unsolicited Start: 09-03-2024 End: 09-03-2024 Clinisync Result Encounter Angélica Ashok DO Work Phone: [facility] External [facility] Unsolicited Start: 08-26-2024 End: 08-26-2024 Office outpatient visit 15 minutes Angélica Ashok DO Work Phone: [facility] Comment on above: PCOS (polycystic ova feroz syndrome) Start: 08-26-2024 End: 08-26-2024 Bamboo flowsheet Angélica Ashok DO Work Phone: [facility] Start: 08-26-2024 End: 08-26-2024 Bamboo flowsheet Angélica Ashok DO Work Phone: [facility] Start: 08-26-2024 End: 08-26-2024 ambulatory ANGÉLICA PULIDO Not Available Start: 12-19-2023 End: 12-19-2023 ambulatory KAMALA Jamison JILLIAN Not Available Start: 09-15-2023 End: 09-16-2023 [facility] Start: 10-10-2022 Encounter for genera l adult medical examination without abnormal findings AMBER DORSEY [facility] Start: 10-06-2022 End: 10-07-[address] [...] Date Procedure Procedure Detail Performing Clinician Start: 10-10-2024 Urine test visual color cmprsn meths Argentina ASHRAF Work Phone: Start: 09-03-2024 ALL CBC WITH AUTO DIFF Generic External Data Provider Start: 09-03-2024 ALL DEHYDROEPIANDROSTERONE Angélica Ashok D O Work Phone: Start: 09-03-2024 ALL DHEA SULFATE Angélica Ashok DO Work Phone: Start: 09-03-2024 ALL FOLLICLE STIMULATING HORMONE Angélica F azio DO Work Phone: Start: 09-03-2024 ALL LUTEINIZING HORMONE Angélica Ashok DO Work Phone: Start: 09-03-2024 ALL THYROID STIM HORMONE Angélica Ashok DO Work Phone: Start: 09-03-2024 ALL THYROXINE (T4) FREE Angélica Ashok DO Work Phone: Start: 09-03-2024 MLR HEMOGLOBIN A1C Angélica Ashok DO Work Phone: Start: 09-03-2024 [facility] PREG QUANT HCG Angélica Ashok DO Work Phone: Start: 06-19-2023 Microscopic observation [Identifier] in Cervix by Cyto stain Angélica Ashok DO Work Phone: Plan of Treatment Date Care Activity Detail Author Start: 06-19-2028 Screening for malign ant neoplasm of cervix [facility] Healthcare Start: 02-02-2026 End: 02-02-2026 Patient encounter procedure 02/02/2026 8:30 AM EDT Office Visit [facility] [address] [address] Angélica Pulido, DO [address] [place] [address] [facility] Start: 06-23-2025 Influenza vaccination Influenz a Vaccine (Season Ended) [facility] Start: 04-21-2025 Influenza vaccination Influenza Vacc ine (#1) [facility] Comment on above: Postponed from 06/23 (Supply/Drug Shortage) Start: 03-11-2025 End: 03-11-2025 Patient encounter procedure 03/11/2025 11:30 AM EDT Office Visit [facility] [address] [place] [address] Argentina Aldridge PA [address] [place] [address] [facility] Start: 02-06-2025 End: 02-06-2025 Patient encounter procedure 02/06/2025 2:30 PM EDT Office Visit [facility] [address] [place] [phone] Shelli Andrews, [employer] [address] [place] [address] [facility] Start: 01-28-2025 End: 01-28-2025 Patient encounter procedure [facility] Comment on above: Arrived Start: 12-17-2024 End: 12-17-2024 Patient encounter procedure 12/17/2024 1:00 PM EST Office Visit [facility] [address] [place] [phone] Shelli Andrews, YUAN [address] [place] [address] Arrived [facility] Comment on above: Arrived Start: 12-05-2024 End: 12-05-2024 Patient encounter procedure 12/05/2024 11:20 AM EST Office Visit [facility] [address] [place] [phone] Argentina Aldridge PA [address] [facility] [place] [address] [facility] Start: 11-07-2024 End: 11-07-2024 Patient encounter procedure [facility] Comment on above: Arrived Start: 10-10-2024 End: 10-10-2024 Patient encounter procedure [facility] Comment on above: Arrived Start: 09-09-2024 End: 09-09-2024 Patient encounter procedure 09/09/2024 8:10 AM EST Office Visit [facility] [address] [place] [phone] Angélica Pulido DO [address] [facility] [place] [address] [facility] Start: 08-26-2024 End: 08-26-2024 Patient encounter procedure 08/26/2024 2:10 PM EST Office Visit [facility] [address] [phone] Angélica Pulido DO [address] [place] [address] Arrived [facility] Comment on above: Arrived Start: 08-26-2024 End: 08-26-2025 DHEA DHEA Lab Routine PCOS (polycystic ovarian syndrome) Expected: 08/26/2024 (Approximate), Expires: 08/26/2025 [facility] Comment on above: Expected: 08/26/2024 (Approximate), Expires: 08/26/2025 Start: 08-26-2024 End: 08-26-2025 US for US PELVIS-TRANSVAG IF INDICATED Imaging Routine PCOS (polycystic ovarian syndrome) Expected: 08/26/2024 (Approximate), Expires: 08/26/2025 [facility] Comment on above: Expected: 08/26/2024 (Approximate), Expires: 08/26/2025 Start: 06-23-2024 Influenza vaccination Influenza Vacc ine (#1) [facility] CBC W Auto Different ial panel - Blood CBC and differential Lab Routine PCOS (polycystic ovarian syndrome) Ordered: 08/26/2024 [facility] Comment on above: Ordered: 08/26/2024 Cytology Cervical or vaginal smear or scraping study Pap Smear Pathology and Cytology Routine Well woman exam with routine gynecological exam Ordered: 01/28/2025 [facility] Work Phone: Comment on above: Ordered: 01/28/2025 DHEA-sulfate DHEA-sulfate Lab Routine PCOS (polycystic ovarian syndrome) Ordered: 08/26/2024 [facility] Comment on above: Ordered: 08/26/2024 Follicle stimulating hormone Follicle stimulating hormone Lab Routine PCOS (polycystic ovarian syndrome) Ordered: 08/26/2024 [facility] Comment on above: Ordered: 08/26/2024 hCG, quantitative, hCG, quantitative, Lab Routine PCOS (polycystic ovarian syndrome) Ordered: 08/26/2024 [facility] Work Phone: Comment on above: Ordered: 08/26/2024 Hemoglobin A1c/Hemoglobin.total in Blood Hemoglobin A1c Lab Routine PCOS (polycystic ovarian syndrome) Ordered: 08/26/2024 [facility] Comment on above: Ordered: 08/26/2024 Human papilloma viru s DNA [Presence] in Unspecified specimen by Probe with amplification HPV DNA probe, amplified Microbiology Routine Well woman exam with routine gynecological exam Ordered: 01/28/2025 [facility] Comment on above: Ordered: 01/28/2025 Luteinizing hormone Luteinizing hormone Lab Routine PCOS (polycystic ovarian syndrome) Ordered: 08/26/2024 [facility] Comment on above: Ordered: 08/26/2024 Thyrotropin [Units/volume] in Serum or Plasma TSH Lab Routine PCOS (polycystic ovarian syndrome) Ordered: 08/26/2024 [facility] Comment on above: Ordered: 08/26/2024 Thyroxine (T4) free [Mass/volume] in Serum or Plasma T4, free Lab Routine PCOS (polycystic ovarian syndrome) Ordered: 08/26/2024 [facility] Comment on above: Ordered: 08/26/2024 Immunizations Immunization Date Immunization Notes Care Provider [facility] 05-19-2021 tetanus and diphther ia toxoids, adsorbed, preservative free, for adult use (5 Lf of tetanus toxoid and 2 Lf of diphtheria toxoid) Angélica Jamclouds DO Work Phone: [facility] 08-07-2020 influenza, injectabl e, quadrivalent, preservative free Angélica Ashok DO Work Phone: [facility] 08-07-2020 influenza virus vacc ine, unspecified formulation Angélica Ashok DO Work Phone: [facility] 08-31-2017 influenza, injectabl e, quadrivalent, preservative free Angélica Ashok DO Work Phone: [facility] 12-30-2013 hepatitis B vaccine, pediatric or pediatric/adolescent dosage Angélica Ashok DO Work Phone: [facility] 07-24-2013 hepatitis B vaccine, pediatric or pediatric/adolescent dosage Angélica Ashok DO Work Phone: [facility] 06-18-2013 hepatitis B vaccine, pediatric or pediatric/adolescent dosage Angélica Ashok DO Work Phone: [facility] 12-21-2010 tetanus toxoid, redu jemima diphtheria toxoid, and acellular pertussis vaccine, adsorbed Angélica Ashok DO Work Phone: [facility] 07-07-2004 measles, mumps and rubella virus vaccine Angélica Ashok DO Work Phone: [facility] 06-16-1997 diphtheria, tetanus toxoids and acellular pertussis vaccine, unspecified formulation Angélica Ashok DO Work Phone: [facility] 06-16-1997 poliovirus vaccine, unspecified formulation Angélica Ashok DO Work Phone: [facility] 05-26-1995 diphtheria, tetanus toxoids and acellular pertussis vaccine, unspecified formulation Angélica Ashok DO Work Phone: [facility] 05-26-1995 haemophilus influenz ae type b vaccine, conjugate unspecified formulation Angélica Ashok DO Work Phone: [facility] 05-26-1995 measles, mumps and rubella virus vaccine Angélica Ashok DO Work Phone: [facility] 05-26-1995 poliovirus vaccine, unspecified formulation Angélica Ashok DO Work Phone: [facility] 02-18-1993 diphtheria, tetanus toxoids and acellular pertussis vaccine, unspecified formulation Angélica Ashok DO Work Phone: [facility] 02-18-1993 haemophilus influenz ae type b vaccine, conjugate unspecified formulation Angélica Ashok DO Work Phone: [facility] 02-18-1993 poliovirus vaccine, unspecified formulation Angélica Ashok DO Work Phone: [facility] 1992 diphtheria, tetanus toxoids and acellular pertussis vaccine, unspecified formulation Angélica Ashok DO Work Phone: [facility] 1992 haemophilus influenz ae type b vaccine, conjugate unspecified formulation Angélica Ashok DO Work Phone: [facility] 1992 poliovirus vaccine, unspecified formulation Angélica Ashok DO Work Phone: [facility] 1992 diphtheria, tetanus toxoids and acellular pertussis vaccine, unspecified formulation Angélica Ashok DO Work Phone: [facility] 1992 haemophilus influenz ae type b vaccine, conjugate unspecified formulation Angélica Ashok DO Work Phone: [facility] 1992 poliovirus vaccine, unspecified formulation Angélica Ashok DO Work Phone: [facility] Payers Date Payer Category Payer Private Health Insurance [id number] 2023 Unknown [id number] 2014 Unknown [id number] 1992 Unknown [id number] 2.16.84 [id number] 1992 Unknown [id number] 2.16.84 0.1.570975.3.579.2.593 1992 Unknown [id number] 2.16.84 0.1.066052.3.579.2.593 1992 Unknown [id number] 2.16.84 0.1.805110.3.579.2.593 1992 Unknown [id number] 2.16.84 0.1.543187.3.579.2.593 1992 Unknown [id number] 2.16.84 0.1.452380.3.579.2.593 1992 Unknown [id number] 2.16.8 40.1.857692.3.579.2.173 1992 Unknown [id number] 2.16.84 0.1.324175.3.579.2.1259 1992 Unknown [id number] 2.16.84 0.1.511215.3.579.2.1259 1992 Unknown [id number] 2.16.84 0.1.034101.3.579.2.9 1992 Unknown [id number] 2.16.84 0.1.986293.3.579.2.9 1992 Unknown [id number] 2.16.84 0.1.998622.3.579.2.9 1992 Unknown [id number] 2.16.84 0.1.758968.3.579.2.1259 1959 Unknown [id number] 1959 Unknown [id number] Unknown [id number] Social History Date Type Detail Facility Start: 12-19-2023 Tobacco smoking status VAIS Never sm oked tobacco [facility] Start: 12-19-2023 Tobacco use and exposure Smoke less tobacco non-user [facility] Start: 12-19-2023 End: 12-17-2024 Alcoholic beverage intake [facility]-drinker (finding) [facility] Start: 07-04-2023 End: 12-17-2024 History of Social function [facility] Start: 07-04-2023 End: 12-17-2024 Humiliation, Afraid, Rape, and Kick questionnaire [HARK] [...] Only a little [facility] (I/We) worried whemandy er (my/our) food would run out before (I/we) got money to buy more. Never true [facility] Start: 06-02-2023 Alcohol Comment Alcohol: 1 or 2 drinks on a typical day/monthly or less Caffeine: 2-3 cups/day coffee, pop daily [facility] Start: 1990 Sex assigned at Not on file [facility] Clinical Notes 08-26-2024 to 01-28-2025 Amber Dorsey, TRIMMER SORTER - 01/28/2025 2:00 PM EDTTelephone Encounter - Marissa Molina - 12/26/2024 1:39 PM ESTTelephone Encounter - Marissa Molina - 12/26/2024 1:39 PM EST Note Date & Type Note Facility 01-28-2025 History of Presen t illness Narrative Reason for Appointment: Patient ID: Vannesa Zavaleta is a 34 y.o. female who presents for Well Women Visit Patient presents today for Annual Exam. 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 Chronic sinusitis 09/08/2020 Moderate episode of recurrent major depressive disorder ([facility]/HCC) 06/30/2023 Obesity with body mass index 30 or greater 12/07/2018 Sleep disturbances 06/30/2023 Stress 09/13/2017 Resolved Ambulatory Problems Diagnosis Date Noted No Resolved Ambulatory Problems Past Medical History: Diagnosis Date Anxiety Depression ([facility]) Irregular periods Menorrhagia Miscarriage 06/2014 Mood change Pelvic pain HISTORY PAST MEDICAL HISTORY SOCIAL HISTORY Past Medical History: Diagnosis Date Abnormal weight gain Anxiety Anxiety disorder 06/30/2023 Depression ([facility]) Irregular periods Menorrhagia Miscarriage 06/2014 Mood [...] Constitutional: Appearance: Normal appearance. She is well-developed. Genitourinary: Vulva normal. No vaginal prolapse present. No vaginal atrophy present. Breasts: Breasts are soft. Right: Normal. Left: Normal. Cardiovascular: Rate and Rhythm: Normal rate and [...] nursing note reviewed. Exam conducted with a elevator dispatcher present. Vitals: Estimated body mass index is 31.05 kg/m as calculated from the following: Height as of 08/26/24: 5' 10 . Weight as of this encounter: 216 lb 6.4 oz. BP: 114/76 No LMP recorded. ASSESSMENT & PLAN ICD-10-CM 1. Well woman exam with routine gynecological exam Z01.419 Pap Smear HPV DNA probe, amplified Annual Exam: Patient presents today for an annual exam. Patient states she is doing well and has no complaints. Pap was obtained without difficulty. Orders Placed This Encounter Procedures HPV DNA probe, amplified Follow Up: Patient is to return in one year for annual unless needed otherwise. Documented by Abmer Dorsey NP on behalf of: Amber Dorsey NP documented in this encounter [facility] 12-26-2024 Telephone encount er Note Received as voicemail: Yes, my name is Елена Zavaleta. Date of is seen Shelli Marc a little over a week ago and she put me on an antibiotic for a sinus infection. And that did not work. So they sent in a new 1. And I was just wondering if I could get a message To her to see if I am able to still take, like, over the counter, like sinus medicine, like pseudo fed or musin exert and even like allergy stuff along with taking the new antibiotic. My phone number is [phone]. Thank you. [facility] 12-26-2024 Miscellaneous Notes Formattin g of this note might be different from the original. Received as voicemail: Yes, my name is Елена Zavaleta. Date of is seen Shelli Marc a little over a week ago and she put me on an antibiotic for a sinus infection. And that did not work. So they sent in a new 1. And I was just wondering if I could get a message To her to see if I am able to still take, like, over the counter, like sinus medicine, like pseudo fed or musin exert and even like allergy stuff along with taking the new antibiotic. My phone number is [phone]. Thank you. documented in this encounter [facility] 12-23-2024 Telephone encount er Note Patient was seen last Monday and was prescribed a zpac- which she has finished . She has sinus congestion, ears- itching and pressure, sinuses are draining, blowing out yellow, brown mucous. No fever uses [facility] in [place]. Please advise pt. Thank you. [facility] 12-23-2024 Miscellaneous Notes Formattin g of this note might be different from the original. Patient was seen last Monday and was prescribed a zpac- which she has finished . She has sinus congestion, ears- itching and pressure, sinuses are draining, blowing out yellow, brown mucous. No fever uses [facility] in [place]. Please advise pt. Thank you. documented in this encounter [facility] 12-17-2024 History of Presen t illness Narrative Images from the original note were not included. Vannesa Zavaleta is a 34 y.o. female presents with chief complaint of Ear Pressure and Pressure Behind the Eyes (Has tried nasal sprays and allergy meds) HPI: HPI Patient presents to the office today with acute concerns. Has had symptoms for at least a week or two but worsening the last 4 days. Admits sinus pressure and now having more ear pressure and pain. Left ear greater than right. OTC medications have helped but nothing is taking it away. Denies feeling sick. Denier fever, body aches or chills. No headaches. Admits muffled hearing. Some nasal congestion and drainage. No sore throat or chest pain. No cough or respiratory distress. No abd pain or cory change. No NVD. Sleeping ok at night. Has tried taking Claritin, flonase, sudaphed, mucinex and saline spray. SUBJECTIVE: MEDICATIONS: Current Outpatient Medications Medication Instructions azithromycin (Zithromax) 250 MG tablet Take 2 tablets (500 mg) by mouth Daily for 1 day, THEN 1 tablet (250 mg) Daily for 4 days. metFORMIN XR (GLUCOPHAGE-XR) 1,000 mg, Oral, Daily with evening meal, Do not crush, chew, or split. phentermine (ADIPEX-P) 37.5 mg, Oral, Daily before breakfast ALLERGIES: Allergies Allergen Reactions Ciprofloxacin Headache Escitalopram Other Reaction(s): increased BP Venlafaxine Other Reaction(s): jittery Amoxicillin Rash History: Past Medical History: Diagnosis Date Abnormal weight gain Anxiety Anxiety disorder 06/30/2023 Depression (CMS/HCC) Irregular periods Menorrhagia Miscarriage 06/2014 Mood change Pelvic pain Past Surgical History: Procedure Laterality Date PAP SMEAR 05/31/2022 Negative Family History Problem Relation Name Age of Onset Heart disease Mother Nayeli Butler Rheum arthritis Mother Nayeli Butler Fibromyalgia Mother Nayeli Butler Anxiety disorder Mother Nayeli Butler Depression Mother Nayeli Butler Heart disease Father No Known Problems Brother Depression Other Spouse paxil - sees Dr. 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 [employer] Tobacco Use Smoking status: Never Smokeless tobacco: Never Vaping Use Vaping status: Never Used Substance and Sexual Activity Alcohol use: Not Currently Comment: Alcohol: 1 or 2 drinks on a typical day/monthly or less Caffeine: 2-3 cups/day coffee, pop daily Drug use: Never Sexual activity: Yes Partners: Male control/protection: None Other Topics Concern Not on file Social History Narrative Education: graduated from high school and 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 Community Involvement: attends [employer] Living with: spouse Logan son's Yusra Ruffin mother in law Sania huerta father in law Gilbert (patient lives at mother in law house) Natural Support System: friends, spouse Pets: 5 cats Social Drivers of Health Financial Resource Strain: Low Risk (07/04/2023) Overall Financial Resource Strain (CARDIA) Difficulty of Paying Living Expenses: Not hard at all Food Insecurity: No Food Insecurity (07/04/2023) Hunger Vital Sign Worried About Running Out of Food in the Last Year: Never true Ran Out of Food in the Last Year: Never true Transportation Needs: No Transportation Needs (07/04/2023) PRAPARE - Transportation Lack of Transportation (Medical): No Lack of Transportation (Non-Medical): No Physical Activity: Inactive (07/04/2023) Exercise Vital Sign Days of Exercise per Week: 2 days Minutes of Exercise per Session: 0 min Stress: No Stress Concern Present (07/04/2023) [place] [employer] - Occupational Stress Questionnaire Feeling of Stress : Only a little Social Connections: Moderately Isolated (07/04/2023) Social Connection and Isolation Panel [NHANES] Frequency of Communication with Friends and Family: More than three times a week Frequency of Social Gatherings with Friends and Family: Twice a week Attends Nondenominational Services: Never Active Member of Clubs or Organizations: No Attends Club or Organization Meetings: Never Marital Status: Intimate Partner Violence: Not At Risk (07/04/2023) Humiliation, Afraid, Rape, and Kick questionnaire Fear of Current or Ex-Partner: No Emotionally Abused: No Physically Abused: No Sexually Abused: No Housing Stability: Low Risk (07/04/2023) Housing Stability Vital Sign Unable to Pay for Housing in the Last Year: No Number of Places Lived in the Last Year: 2 Unstable Housing in the Last Year: No I have reviewed and reconciled the history and medication list with the patient today. REVIEW OF SYMPTOMS: Review of Systems Constitutional: Negative for activity change, appetite change and fatigue. HENT: Positive for congestion, ear pain (left greater than right), hearing loss (muffled), sinus pressure and sinus pain. Negative for sore throat. Respiratory: Negative for cough, shortness of breath and wheezing. Cardiovascular: Negative for chest pain and palpitations. Gastrointestinal: Negative for abdominal pain, diarrhea and nausea. Genitourinary: Negative. Musculoskeletal: Negative. Skin: Negative for color change, rash and wound. Neurological: Negative for headaches. Psychiatric/Behavioral: Negative. OBJECTIVE: 08/23/2023 1:39 PM 12/19/2023 1:50 PM 08/26/2024 2:33 PM 10/10/2024 10:50 AM 11/07/2024 3:25 PM 12/05/2024 1:47 PM 12/17/2024 1:02 PM Vitals BMI 31.91 kg/m2 31.97 kg/m2 32.57 kg/m2 32.43 kg/m2 31.42 kg/m2 30.68 kg/m2 30.88 kg/m2 BSA (m2) 2.23 m2 2.23 m2 2.26 m2 2.26 m2 2.21 m2 2.19 m2 2.2 m2 Systolic 124 122 126 122 126 116 128 Diastolic 82 86 82 76 84 76 80 Heart Rate 88 76 96 Temp 98 F Height (in) 5' 10 Weight (lb) 222.4 222.8 227 226 219 213.8 215.2 Visit Report Report Report Report Report Report Report Report Physical Exam Vitals reviewed. Constitutional: General: She is not in acute distress. Appearance: Normal appearance. She is not ill-appearing. HENT: Head: Normocephalic and atraumatic. Right Ear: Tympanic membrane, ear canal and external ear normal. Tympanic membrane is not perforated. Left Ear: Tympanic membrane, ear canal and external ear normal. Tympanic membrane is not perforated. Ears: Comments: Cloudy fluid to left TM Nose: Rhinorrhea present. No congestion. Rhinorrhea is purulent. Right Turbinates: Enlarged and swollen. Left Turbinates: Enlarged and swollen. Right Sinus: Maxillary sinus tenderness present. Left Sinus: Maxillary sinus tenderness present. Mouth/Throat: Mouth: Mucous membranes are moist. Pharynx: Oropharynx is clear. No oropharyngeal exudate or posterior oropharyngeal erythema. Cardiovascular: Rate and Rhythm: Normal rate and regular rhythm. Heart sounds: No murmur heard. Pulmonary: Effort: Pulmonary effort is normal. No respiratory distress. Breath sounds: Normal breath sounds. No wheezing or rhonchi. Comments: No cough Abdominal: General: Bowel sounds are normal. There is no distension. Palpations: Abdomen is soft. Tenderness: There is no abdominal tenderness. Musculoskeletal: Cervical back: Normal range of motion. No rigidity or tenderness. Lymphadenopathy: Cervical: No cervical adenopathy. Skin: General: Skin is warm and dry. Findings: No rash. Neurological: Mental Status: She is alert. Psychiatric: Mood and Affect: Mood normal. Behavior: Behavior normal. ASSESSMENT AND PLAN: Assessment/Plan Diagnoses and all orders for this visit: Acute non-recurrent maxillary sinusitis - azithromycin (Zithromax) 250 MG tablet; Take 2 tablets (500 mg) by mouth Daily for 1 day, THEN 1 tablet (250 mg) Daily for 4 days. Sinus pressure Ear pain, left Nasal congestion -Advised patient to take antibiotic with food to avoid GI upset and encouraged fluids. Follow up if not improving. -Continue saline spray, flonase and claritin. Follow up if not improving. Follow up if symptoms worsen or fail to improve, for due for wellness sometime this year . documented in this encounter [facility] 12-05-2024 History of Presen t illness Narrative Reason for Appointment: Patient ID: Vannesa Zavaleta is a 34 y.o. female who presents for Weight Management Patient presents today for a weight management consultation. Patient has been prescribed Adipex and she is here for her 3rd prescription. Today's Vitals: Estimated body mass index is 30.68 kg/m as calculated from the following: Height as of 08/26/24: 5' 10 . Weight as of this encounter: 213 lb 12.8 oz. Previous Weight/BMI: Wt Readings from Last 3 Encounters: 12/05/24 213 lb 12.8 oz 11/07/24 219 lb 10/10/24 226 lb BMI Readings from Last 3 Encounters: 12/05/24 30.68 kg/m 11/07/24 31.42 kg/m 10/10/24 32.43 kg/m Allergies as of 12/05/2024 - Reviewed 12/05/2024 Allergen Reaction Noted Ciprofloxacin Headache 06/06/2023 Escitalopram 06/30/2023 Venlafaxine 06/30/2023 Amoxicillin Rash 06/06/2023 Past Medical History: Diagnosis Date Abnormal weight gain Anxiety Anxiety disorder 06/30/2023 Depression (CMS/HCC) Irregular periods Menorrhagia Miscarriage 06/2014 Mood change Pelvic pain Past Surgical History: Procedure Laterality Date PAP SMEAR 05/31/2022 Negative Review of Systems: Review of Systems Constitutional: Negative. HENT: Negative. Eyes: Negative. Respiratory: Negative. Cardiovascular: Negative. Gastrointestinal: Negative. Genitourinary: Negative. Musculoskeletal: Negative. Skin: Negative. Neurological: Negative. All other systems reviewed and are negative. Hematological: Negative. Endocrine: Negative. Allergic/Immunologic: Negative. Objective Physical Exam Constitutional: Appearance: Normal appearance. She is normal weight. HENT: Head: Normocephalic. Cardiovascular: Rate and Rhythm: Normal rate. Pulses: Normal pulses. Pulmonary: Effort: Pulmonary effort is normal. Breath sounds: Normal breath sounds. Abdominal: Palpations: Abdomen is soft. Musculoskeletal: General: Normal range of motion. Neurological: General: No focal deficit present. Mental Status: She is alert and oriented to person, place, and time. Psychiatric: Mood and Affect: Mood normal. Behavior: Behavior normal. Thought Content: Thought content normal. Judgment: Judgment normal. Vitals and nursing note reviewed. Assessment/Plan Encounter Diagnoses Name Primary? Encounter for weight management Insulin resistance Adipex: Patient presents today for 3rd Adipex prescription. Patient desires additional weigh loss and she is currently taking metformin along with working out to achieve further results. Weight and blood pressure has been captured and I have discussed/reiterated the importance of keeping a food journal, proper nutrition/diet, and exercise regimen. Patient verbalized understanding. Patient has lost more than 5% of her initial body weight Follow Up: Patientwill follow up in 90 days to discuss options or further asessment as needed Documented by: Sally Arzate LPN on behalf of ANDRIY Mccall documented in this encounter [facility] 11-07-2024 History of Presen t illness Narrative Reason for Appointment: Patient ID: Vannesa Zavaleta is a 34 y.o. female who presents for Weight Management Patient presents today for a weight management consultation. Patient has been prescribed Adipex and she is here for her 2nd prescription. Today's Vitals: Estimated body mass index is 31.42 kg/m as calculated from the following: Height as of 08/26/24: 5' 10 . Weight as of this encounter: 219 lb. Previous Weight/BMI: Wt Readings from Last 2 Encounters: 11/07/24 219 lb 10/10/24 226 lb BMI Readings from Last 2 Encounters: 11/07/24 31.42 kg/m 10/10/24 32.43 kg/m Allergies as of 11/07/2024 - Reviewed 11/07/2024 Allergen Reaction Noted Ciprofloxacin Headache 06/06/2023 Escitalopram 06/30/2023 Venlafaxine 06/30/2023 Amoxicillin Rash 06/06/2023 Past Medical History: Diagnosis Date Abnormal weight gain Anxiety Anxiety disorder 06/30/2023 Depression (CMS/HCC) Irregular periods Menorrhagia Miscarriage 06/2014 Mood change Pelvic pain Past Surgical History: Procedure Laterality Date PAP SMEAR 05/31/2022 Negative Assessment/Plan Encounter Diagnosis Name Primary? Encounter for weight management Adipex: Patient presents today for 2nd Adipex prescription. Patients weight and blood pressure has been captured and discussed with the patient. I have discussed/reiterated the importance of keeping a food journal, proper nutrition/diet, and exercise regimen while taking Adipex. Patient verbalized understanding and was given a printed prescription signed by provider to take to their local pharmacy. Follow Up: Patient is to return to the office in 1 month for further evaluation to assess patient progress. Weight and blood pressure will need to be obtained in order for patient to receive 3rd prescription. Documented by: Marbella Butler MA on behalf of ANDRIY Mccall documented in this encounter [facility] 10-10-2024 History of Presen t illness Narrative Reason for Appointment: Patient ID: Vannesa Zavaleta is a 34 y.o. female who presents for Weight Management (Pt present today to discuss Adipex. ) Patient presents today for a weight management consultation. Patient desires to initiate Adipex. Initial Vitals for Adipex prescription #1: Estimated body mass index is 32.43 kg/m as calculated from the following: Height as of 08/26/24: 5' 10 . Weight as of this encounter: 226 lb. Allergies as of 10/10/2024 - Reviewed 10/10/2024 Allergen Reaction Noted Ciprofloxacin Headache 06/06/2023 Escitalopram 06/30/2023 Venlafaxine 06/30/2023 Amoxicillin Rash 06/06/2023 Past Medical History: Diagnosis Date Abnormal weight gain Anxiety Anxiety disorder 06/30/2023 Depression ([facility]) Irregular periods Menorrhagia Miscarriage 06/2014 Mood change Pelvic pain Past Surgical History: Procedure Laterality Date PAP SMEAR 05/31/2022 Negative Review of Systems: Review of Systems Constitutional: Negative. HENT: Negative. Eyes: Negative. Respiratory: Negative. Cardiovascular: Negative. Gastrointestinal: Negative. Genitourinary: Negative. Musculoskeletal: Negative. Skin: Negative. Neurological: Negative. All other systems reviewed and are negative. Hematological: Negative. Endocrine: Negative. Allergic/Immunologic: Negative. Objective Physical Exam Constitutional: Appearance: Normal appearance. She is normal weight. HENT: Head: Normocephalic. Cardiovascular: Rate and Rhythm: Normal rate. Pulses: Normal pulses. Pulmonary: Effort: Pulmonary effort is normal. Breath sounds: Normal breath sounds. Abdominal: Palpations: Abdomen is soft. Musculoskeletal: General: Normal range of motion. Neurological: General: No focal deficit present. Mental Status: She is alert and oriented to person, place, and time. Psychiatric: Mood and Affect: Mood normal. Behavior: Behavior normal. Thought Content: Thought content normal. Judgment: Judgment normal. Vitals and nursing note reviewed. Assessment/Plan Encounter Diagnoses Name Primary? Weight gain Encounter for weight management Adipex: Patient presents today for initial Adipex prescription. I have discussed in detail the importance of keeping a food journal, proper nutrition/diet, and exercise regimen while taking Adipex. Patient verbalized understanding and signed consents to initiate (Adipex) medication therapy. Patient was given a printed prescription signed by provider to take to their local pharmacy. Follow Up: Patient is to return to the office in 1 month for further evaluation to assess patient progress. Weight and blood pressure will need to be captured in order for patient to receive 2nd prescription. Documented by: Mitra Tang MA on behalf of ANDRIY Mccall documented in this encounter [facility] 09-24-2024 History of Presen t illness Narrative Reason for Appointment: Patient ID: Vannesa Zavaleta is a 34 y.o. female who presents for No chief complaint on file. Patient presents today via telephone call for a telehealth appointment. Patients Phone #: [phone] (mobile) Current Medications: has a current medication list which includes the following prescription(s): metformin xr and metformin xr. 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 Chronic sinusitis 09/08/2020 Moderate episode of recurrent major depressive disorder ([facility]) 06/30/2023 Obesity with body mass index 30 or greater 12/07/2018 Sleep disturbances 06/30/2023 Stress 09/13/2017 Resolved Ambulatory Problems Diagnosis Date Noted No Resolved Ambulatory Problems Past Medical History: Diagnosis Date Anxiety Depression (CMS/HCC) Irregular periods Menorrhagia Miscarriage 06/2014 Mood change Pelvic pain Family History Problem Relation Name Age of Onset Heart disease Mother Nayeli Butler Rheum arthritis Mother Nayeli Butler Fibromyalgia Mother Nayeli Butler Anxiety disorder Mother Nayeli Butler Depression Mother Nayeli Butler Heart disease Father No Known Problems Brother Depression Other Spouse paxil - sees Dr. Carrillo No Known Problems Son No Known Problems Son Social History Tobacco Use Smoking status: Never Smokeless tobacco: Never Vaping Use Vaping status: Never Used Substance Use Topics Alcohol use: Not Currently Comment: Alcohol: 1 or 2 drinks on a typical day/monthly or less Caffeine: 2-3 cups/day coffee, pop daily Drug use: Never Past Surgical History: Procedure Laterality Date PAP SMEAR 05/31/2022 Negative Allergies Allergen Reactions Ciprofloxacin Headache Escitalopram Other Reaction(s): increased BP Venlafaxine Other Reaction(s): jittery Amoxicillin Rash Vitals: Estimated body mass index is 32.57 kg/m as calculated from the following: Height as of 08/26/24: 5' 10 . Weight as of 08/26/24: 227 lb. BP: Patient's last menstrual period was 08/19/2024. Assessment/Plan Encounter Diagnoses Name Primary? Fertility testing Abnormal semen analysis Pt was called to discuss semen analysis of partner. Rx for doxy called to pharmacy for 2 months. Discussed both parties taking mucinex daily (1200mg). Today's telehealth visit consisted of spending 6 minutes talking to patient on the phone. Documented by Bree Loredo LPN on behalf of: Angélica Pulido DO documented in this encounter [facility] 08-26-2024 History of Presen t illness Narrative [...] gain 06/30/2023 Anxiety disorder 06/30/2023 Depressive disorder ([facility]) 11/15/2017 Gallstones 09/28/2020 Insulin resistance syndrome 06/30/2023 Keratosis pilaris 04/19/2019 Lipoprotein deficiency disorder ([facility]) 05/27/2019 Chronic sinusitis 09/08/2020 Moderate episode of recurrent major depressive disorder ([facility]) 06/30/2023 Obesity with body mass index 30 or greater 12/07/2018 Sleep disturbances 06/30/2023 Stress 09/13/2017 Resolved Ambulatory Problems Diagnosis Date Noted No Resolved Ambulatory Problems Past Medical History: Diagnosis Date Anxiety Depression ([facility]) Irregular periods Menorrhagia Miscarriage 06/2014 Mood change Pelvic pain HISTORY PAST MEDICAL HISTORY SOCIAL HISTORY Past Medical History: Diagnosis Date Abnormal weight gain Anxiety Anxiety disorder 06/30/2023 Depression ([facility]) Irregular periods Menorrhagia Miscarriage 06/2014 Mood [...] nursing note reviewed. Exam conducted with a elevator dispatcher present. Vitals: Estimated body mass index is [...] Angélica Pulido DO documented in this encounter [facility] Healthcare Evaluation note Diagnosis PCOS (polycystic ovarian syndrome) Polycystic ovaries documented [facility] encounter [facility] Diagnosis Fertility testing Abnormal semen analysis Insulin resistance Other abnormal glucose [facility] in this encounter [facility] Diagnosis Weight gain Other symptoms concerning nutrition, metabolism, and development Encounter for weight management documented in this encounter [facility] Diagnosis Encounter for weight management documented in this encounter [facility] Diagnosis Encounter for weight management Insulin resistance Other abnormal glucose documented in this encounter [facility] Diagnosis Acute non-recurrent maxillary sinusitis- Primary Sinus pressure Other diseases of nasal cavity and sinuses Ear pain, left Nasal congestion Other diseases of nasal cavity and sinuses documented [facility] Diagnosis Well woman exam with routine gynecological exam Routine gynecological examination documented in this encounter [facility] Summary Purpose Family History No Family History Records FoundNo Family History Records FoundNo Family History Records FoundNo Family History Records Found Advance Directives No Advanced Directives Records FoundNo Advanced Directives Records FoundNo Advanced Directives Records FoundNo Advanced Directives Records Found Additional Source Comments INFORMATION SOURCE (unrecogn ized section and content) DATE CREATED AUTHOR 09/02/2020 [facility] DATE CREATED AUTHOR AUTHOR'S ORGANIZ ATION 10/13/2022 [facility] DATE CREATED AUTHOR AUTHOR'S ORGANIZ ATION 09/23/2023 [facility] DATE CREATED AUTHOR AUTHOR'S ORGANIZ ATION 12/19/[address] [facility] [employer] Care Teams (unrecognized sec tion and content) Ski Guide Relationship Specialty Start Date End Date Pam Molina MD [address] [facility] [place] [address] PCP - General Family Medicine 02/28/23 Ski Guide Relationship Specialty Start Date End Date Pam Molina MD [address] [facility] [place] [address] PCP - General Family Medicine 02/28/23 Ski Guide Relationship Specialty Start Date End Date Pam Molina MD [address] [facility] [place] [address] PCP - General Family Medicine 02/28/23 Ski Guide Relationship Specialty Start Date End Date Pam Molina MD [address] [facility] [place] [address] PCP - General Family Medicine 02/28/23 Ski Guide Relationship Specialty Start Date End Date Pam Molina MD [address] [facility] [place] [address] PCP - General Family Medicine 02/28/23 Ski Guide Relationship Specialty Start Date End Date Pam Molina MD [address] [place] [address] PCP - General Family Medicine 02/28/23 Ski Guide Relationship Specialty Start Date End Date Pam Molina MD [address] [place] [address] PCP - General Family Medicine 02/28/23 Ski Guide Relationship Specialty Start Date End Date Pam Molina MD [address] [place] [address] PCP - General Family Medicine 02/28/23 Ski Guide Relationship Specialty Start Date End Date Pam Molina MD [address] [facility] [place] [address] PCP - General Family Medicine 02/28/23 Reason for Visit (unrecogniz ed section and content) Reason Comments PCOS Reason Comments Weight Management Pt present today to discuss Adipex. Reason Comments Weight Management Reason Comments Ear Pressure Pressure Behind the Eyes Has tried nasal sprays and allergy meds Reason Comments Well Women Visit FOR RECORDS PERTAINING TO PATIENTS WHO ARE [...] BE BASED ON THE PRIMARY CLINICAL RECORDS. [employer] provides no warranty or guarantee of the accuracy or completeness of information in this document.
== END 2025-01-28 20:31 | disposition home or self-care (01) ==
LOC: LAB 20:30
PROVIDERS: PCP Family Medicine; Visit Provider Nurse Practitioner Family
DX: Z01.419 Encounter for gynecological examination (general) (routine) without abnormal findings (principal)
CPT/HCPCS: 87624; 88175